=== PATIENT | male | born 1990 | race Caucasian/White ===

== ENCOUNTER 2016-12-08 16:48 | Emergency (ER) | payer OTHER ==
[~2016-12-08] VITALS: Ht 187.9 cm; Wt 108.9 kg
[~2016-12-08 16:48] MED LIST: ACETAMINOPHEN/O1 TAB PO; ADDERALL20 MG PO; ADVIL200 MG PO; AMOXICILLIN500 MG PO; ANAPROX DS550 MG PO; BACTROBAN OINT22 GM PO; CATAFLAM50 MG PO; CEPHALEXIN500 MG PO; CIPRO500 MG PO; CLARITIN10 MG PO; CLEOCIN HCL150 MG PO; CLEOCIN150 MG PO; CLINDAMYCIN HC300 MG PO; DAYPRO600 M1 PO; HYCODAN 1.5 MG480 ML PO; HYDROCODONE BIT1 T11 PO; IBU600 MG PO; LEVAQUIN500 M1 PO; MEDROL DOSEPAK4 MG PO; Motrin,Rufen800 MG PO; NORCO 5-325 TA1 EACH PO; PHENERGAN W/DM120 ML PO; PHENERGAN25 M1 PO; PHENERGAN25 MG RC; PREDNISONE20 MG PO; PROAIR HFA0.09 MG/AC INH; PROTONIX40 MG PO; SINGULAIR10 MG PO; TOBRADEX 0.1%-0.5 ML OPH; TRAMADOL HCL50 MG PO; TRAMADOL50 MG PO; TUSSIN DM 10 MG; VENTOLIN H0.09 MG/AC IH; VICODIN 5/500 505 MG PO; ZANTAC150 MG PO; ZOFRAN4 MG PO
[2016-12-08 17:45] LABS: BASO # 0.1 10*3/uL (0.0-0.1); BASO % 0.5 % (0.0-1.0); EOS # 0.1 10*3/uL (0.0-0.4); EOS % 1.2 % (1.0-4.0); HEMATOCRIT 40.2 % (42.0-52.0); HEMOGLOBIN 13.8 g/dl (14.0-18.0); LYMPH # 1.8 10*3/uL (1.3-4.4); LYMPH % 16.3 % (27.0-41.0); MEAN CELL VOLUME 85.7 fl (80.0-94.0); MEAN CORPUSCULAR HGB 29.4 pg (27.0-31.0); MEAN CORPUSCULAR HGB CONC 34.3 g/dl (33.0-37.0); MEAN PLATELET VOLUME 11.4 fl (9.6-12.3); MONO # 1.3 10*3/uL (0.1-1.0); MONO % 11.5 % (3.0-9.0); NEUT # 7.7 10*3/uL (2.3-7.9); NEUT % 70.2 % (47.0-73.0); PLATELET COUNT AUTOMATED 138 10*3/uL (130-400); RED BLOOD COUNT 4.69 10*6/uL (4.50-5.90); RED CELL DISTRI WIDTH 12.8 % (0-14.5); WHITE BLOOD COUNT 10.9 10*3/uL (4.8-10.8)
[2016-12-08 17:59] LABS: BILIRUBIN NEGATIVE (NEGATIVE); BLOOD TRACE-INTACT (NEGATIVE); CLARITY CLEAR (CLEAR); COLOR YELLOW (YELLOW); GLUCOSE NEGATIVE (NEGATIVE); KETONE TRACE (NEGATIVE); LEUKO ESTERASE NEGATIVE (NEGATIVE); NITRITE NEGATIVE (NEGATIVE)
[2016-12-08 18:05] LABS: ALBUMIN 3.6 gm/dl (3.1-4.5); ALKALINE PHOSPHATASE 61 U/L (45-117); BUN 10 mg/dl (7-24); CHLORIDE 108 mmol/L (98-107); CREATININE 1.03 mg/dL (0.70-1.30); POTASSIUM 3.8 mmol/L (3.5-5.1); SGOT/AST 20 IU/L (3-35); SGPT/ALT 31 U/L (12-78); SODIUM 140 mmol/L (136-145); TOTAL PROTEIN 6.9 gm/dL (6.4-8.2)
[2016-12-08 18:09] LABS: RBC 0-2 rbc/hpf (0-2); WBC 0-2 wbc/hpf (0-5)
[2016-12-08 18:14] LABS: URINE AMPHETAMINES < 1000 (1000ng/ml); URINE BARBITURATES < 200 (200ng/ml); URINE BENZODIAZEPINES < 200 (200ng/ml); URINE CANNABINOIDS (THC) < 50 (50ng/ml); URINE COCAINE < 300 (300ng/ml); URINE METHADONE < 300 (300ng/ml); URINE OPIATES < 300 (300ng/ml); URINE PHENCYCLIDINE < 25 (25ng/ml)
[2016-12-08 18:25] VITALS: BP 153/104
== END 2016-12-08 19:11 | disposition left against medical advice (07) ==
LOC: ED 16:48
PROVIDERS: Nurse Practitioner Family
DX: B34.9 Viral infection, unspecified (principal); M54.5 Low back pain; M54.2 Cervicalgia; F17.200 Nicotine dependence, unspecified, uncomplicated; Z87.442 Personal history of urinary calculi; Z88.0 Allergy status to penicillin; Z88.2 Allergy status to sulfonamides; Z88.1 Allergy status to other antibiotic agents

== ENCOUNTER 2017-08-19 21:18 | Emergency (ER) | payer OTHER ==
[~2017-08-19] VITALS: Ht 187.9 cm; Wt 99.8 kg
[2017-08-19 21:23] VITALS: BP 132/87
[2017-08-19 22:41] LABS: BASO # 0.1 10*3/uL (0.0-0.1); BASO % 0.7 % (0.0-1.0); EOS # 0.2 10*3/uL (0.0-0.4); EOS % 2.4 % (1.0-4.0); HEMATOCRIT 41.4 % (42.0-52.0); HEMOGLOBIN 14.2 g/dl (14.0-18.0); LYMPH % 36.1 % (27.0-41.0); MEAN CELL VOLUME 85.9 fl (80.0-94.0); MEAN CORPUSCULAR HGB 29.5 pg (27.0-31.0); MEAN CORPUSCULAR HGB CONC 34.3 g/dl (33.0-37.0); MEAN PLATELET VOLUME 12.1 fl (9.6-12.3); MONO # 0.9 10*3/uL (0.1-1.0); MONO % 10.3 % (3.0-9.0); NEUT # 4.2 10*3/uL (2.3-7.9); NEUT % 50.1 % (47.0-73.0); PLATELET COUNT AUTOMATED 169 10*3/uL (130-400); RED BLOOD COUNT 4.82 10*6/uL (4.50-5.90); RED CELL DISTRI WIDTH 12.8 % (0-14.5); WHITE BLOOD COUNT 8.3 10*3/uL (4.8-10.8)
[2017-08-19 22:59] LABS: ALKALINE PHOSPHATASE 57 U/L (45-117); BUN 23 mg/dl (7-24); CHLORIDE 108 mmol/L (98-107); CREATININE 0.88 mg/dL (0.70-1.30); POTASSIUM 3.9 mmol/L (3.5-5.1); SGOT/AST 19 IU/L (3-35); SGPT/ALT 31 U/L (12-78); SODIUM 142 mmol/L (136-145); TOTAL PROTEIN 6.9 gm/dL (6.4-8.2)
[2017-08-20] MEDS ORDERED: VIBRAMYCIN100 MG PO (00:15)
== END 2017-08-20 00:30 | disposition home or self-care (01) ==
LOC: ED 21:18
PROVIDERS: Physician Assistant
DX: R51 Headache (principal); R21 Rash and other nonspecific skin eruption; F17.200 Nicotine dependence, unspecified, uncomplicated; Z90.49 Acquired absence of other specified parts of digestive tract; Z98.890 Other specified postprocedural states; Z88.0 Allergy status to penicillin; Z88.2 Allergy status to sulfonamides; Z88.1 Allergy status to other antibiotic agents

== ENCOUNTER 2017-12-14 19:12 | Emergency (ER) | payer OTHER ==
[~2017-12-14] VITALS: Ht 187.9 cm; Wt 90.7 kg
[~2017-12-14 19:12] MED LIST changes: +VIBRAMYCIN100 MG PO
[2017-12-14 19:15] VITALS: BP 130/80
[2017-12-14 20:00] LABS: BASO # 0.1 10*3/uL (0.0-0.1); BASO % 0.8 % (0.0-1.0); EOS # 0.2 10*3/uL (0.0-0.4); EOS % 2.5 % (1.0-4.0); HEMATOCRIT 45.1 % (42.0-52.0); HEMOGLOBIN 15.7 g/dl (14.0-18.0); LYMPH # 2.8 10*3/uL (1.3-4.4); LYMPH % 35.4 % (27.0-41.0); MEAN CELL VOLUME 86.9 fl (80.0-94.0); MEAN CORPUSCULAR HGB 30.3 pg (27.0-31.0); MEAN CORPUSCULAR HGB CONC 34.8 g/dl (33.0-37.0); MEAN PLATELET VOLUME 11.9 fl (9.6-12.3); MONO # 0.9 10*3/uL (0.1-1.0); MONO % 11.1 % (3.0-9.0); NEUT # 3.9 10*3/uL (2.3-7.9); NEUT % 49.4 % (47.0-73.0); PLATELET COUNT AUTOMATED 181 10*3/uL (130-400); RED BLOOD COUNT 5.19 10*6/uL (4.50-5.90); RED CELL DISTRI WIDTH 12.7 % (0-14.5); WHITE BLOOD COUNT 7.9 10*3/uL (4.8-10.8)
[2017-12-14 20:13] LABS: ALBUMIN 3.8 gm/dl (3.1-4.5); ALKALINE PHOSPHATASE 58 U/L (45-117); BUN 14 mg/dl (7-24); CHLORIDE 108 mmol/L (98-107); CREATININE 0.88 mg/dL (0.70-1.30); POTASSIUM 3.7 mmol/L (3.5-5.1); SGOT/AST 22 IU/L (3-35); SGPT/ALT 49 U/L (12-78); SODIUM 140 mmol/L (136-145); TOTAL PROTEIN 7.2 gm/dL (6.4-8.2)
== END 2017-12-14 21:15 ==
LOC: ED 19:12
PROVIDERS: Student in an Organized Health Care Education/Training Program
DX: R51 Headache (principal); R50.9 Fever, unspecified; F17.200 Nicotine dependence, unspecified, uncomplicated; Z88.0 Allergy status to penicillin; Z88.1 Allergy status to other antibiotic agents; Z88.2 Allergy status to sulfonamides; Z88.8 Allergy status to other drugs, medicaments and biological substances

== ENCOUNTER → 2018-01-11 | Outpatient (CLI) | payer OTHER | END | disposition home or self-care (01) | LOC: CT 17:00 | DX: R51 Headache (principal) ==

== ENCOUNTER 2018-05-21 10:49 | Emergency (ER) | payer OTHER ==
[~2018-05-21] VITALS: Ht 187.9 cm; Wt 108.9 kg
[2018-05-21 10:50] VITALS: BP 136/93
[2018-05-21 11:31] LABS: BASO # 0.1 10*3/uL (0.0-0.1); BASO % 0.8 % (0.0-1.0); EOS # 0.1 10*3/uL (0.0-0.4); EOS % 2.2 % (1.0-4.0); HEMATOCRIT 45.6 % (42.0-52.0); HEMOGLOBIN 15.7 g/dl (14.0-18.0); LYMPH # 1.8 10*3/uL (1.3-4.4); LYMPH % 30.6 % (27.0-41.0); MEAN CELL VOLUME 88.4 fl (80.0-94.0); MEAN CORPUSCULAR HGB 30.4 pg (27.0-31.0); MEAN CORPUSCULAR HGB CONC 34.4 g/dl (33.0-37.0); MEAN PLATELET VOLUME 11.5 fl (9.6-12.3); MONO # 0.9 10*3/uL (0.1-1.0); MONO % 14.5 % (3.0-9.0); NEUT % 51.2 % (47.0-73.0); PLATELET COUNT AUTOMATED 164 10*3/uL (130-400); RED BLOOD COUNT 5.16 10*6/uL (4.50-5.90); RED CELL DISTRI WIDTH 12.8 % (0-14.5); WHITE BLOOD COUNT 5.9 10*3/uL (4.8-10.8)
[2018-05-21 11:45] LABS: ALBUMIN 3.6 gm/dl (3.1-4.5); BUN 11 mg/dl (7-24); CHLORIDE 110 mmol/L (98-107); CREATININE 1.01 mg/dL (0.70-1.30); POTASSIUM 4.1 mmol/L (3.5-5.1); SGOT/AST 29 IU/L (3-35); SGPT/ALT 60 U/L (12-78); SODIUM 142 mmol/L (136-145); TOTAL PROTEIN 7.3 gm/dL (6.4-8.2)
[2018-05-21 11:49] LABS: ALKALINE PHOSPHATASE 71 U/L (45-117)
[2018-05-21 11:50] LABS: BILIRUBIN NEGATIVE (NEGATIVE); BLOOD TRACE-INTACT (NEGATIVE); CLARITY SL CLOUDY (CLEAR); COLOR YELLOW (YELLOW); GLUCOSE NEGATIVE (NEGATIVE); KETONE NEGATIVE (NEGATIVE); LEUKO ESTERASE NEGATIVE (NEGATIVE); NITRITE NEGATIVE (NEGATIVE); PH 5.5 (5.0-9.0); SPECIFIC GRAVITY >= 1.030 (1.005-1.030); UROBILINOGEN 0.2 E.U./dl (0.2-1.0)
[2018-05-21 12:12] LABS: BACTERIA 1+; CALCIUM OXALATE CRYSTALS TRACE; MUCOUS 2+; WBC 0-2 wbc/hpf (0-5)
[2018-05-21] MEDS ORDERED: NAPROSYN500 MG PO (12:25)
[2018-05-21] MEDS ORDERED: CHLORZOXAZONE500 M2 PO (12:25)
[2018-05-21] MEDS ORDERED: ZOFRAN4 MG PO (12:25)
== END 2018-05-21 12:33 | disposition home or self-care (01) ==
LOC: ED 10:49
PROVIDERS: Nurse Practitioner Family
DX: R31.9 Hematuria, unspecified (principal); R03.0 Elevated blood-pressure reading, without diagnosis of hypertension; I48.91 Unspecified atrial fibrillation; Z88.0 Allergy status to penicillin; Z88.2 Allergy status to sulfonamides; Z88.8 Allergy status to other drugs, medicaments and biological substances; Z79.2 Long term (current) use of antibiotics; Z79.899 Other long term (current) drug therapy; Z87.442 Personal history of urinary calculi; Z90.49 Acquired absence of other specified parts of digestive tract

== ENCOUNTER 2018-06-05 12:54 | Emergency (ER) | payer OTHER ==
[~2018-06-05] VITALS: Ht 187.9 cm; Wt 104.3 kg
[~2018-06-05 12:54] MED LIST changes: +CHLORZOXAZONE500 M2 PO; +NAPROSYN500 MG PO
[2018-06-05 14:10] VITALS: BP 134/82
[2018-06-05 15:27] LABS: BASO # 0.1 10*3/uL (0.0-0.1); BASO % 0.7 % (0.0-1.0); EOS # 0.3 10*3/uL (0.0-0.4); HEMATOCRIT 43.4 % (42.0-52.0); HEMOGLOBIN 14.9 g/dl (14.0-18.0); LYMPH # 2.8 10*3/uL (1.3-4.4); MEAN CELL VOLUME 88.6 fl (80.0-94.0); MEAN CORPUSCULAR HGB 30.4 pg (27.0-31.0); MEAN CORPUSCULAR HGB CONC 34.3 g/dl (33.0-37.0); MEAN PLATELET VOLUME 11.8 fl (9.6-12.3); MONO # 0.7 10*3/uL (0.1-1.0); MONO % 8.9 % (3.0-9.0); NEUT # 4.4 10*3/uL (2.3-7.9); NEUT % 53.2 % (47.0-73.0); PLATELET COUNT AUTOMATED 178 10*3/uL (130-400); RED CELL DISTRI WIDTH 12.7 % (0-14.5); WHITE BLOOD COUNT 8.3 10*3/uL (4.8-10.8)
[2018-06-05 15:40] LABS: BILIRUBIN NEGATIVE (NEGATIVE); BLOOD NEGATIVE (NEGATIVE); CLARITY CLEAR (CLEAR); COLOR YELLOW (YELLOW); GLUCOSE NEGATIVE (NEGATIVE); KETONE NEGATIVE (NEGATIVE); LEUKO ESTERASE NEGATIVE (NEGATIVE); NITRITE NEGATIVE (NEGATIVE); PH 5.5 (5.0-9.0); SPECIFIC GRAVITY >= 1.030 (1.005-1.030); UROBILINOGEN 0.2 E.U./dl (0.2-1.0)
[2018-06-05 15:49] LABS: BACTERIA TRACE; CALCIUM OXALATE CRYSTALS TRACE; EPITHELIAL CELLS 0-2; RBC 0-2 rbc/hpf (0-2)
[2018-06-05 15:54] LABS: ALBUMIN 3.4 gm/dl (3.1-4.5); ALKALINE PHOSPHATASE 68 U/L (45-117); BUN 13 mg/dl (7-24); CHLORIDE 110 mmol/L (98-107); CREATININE 0.92 mg/dL (0.70-1.30); POTASSIUM 3.8 mmol/L (3.5-5.1); SGOT/AST 15 IU/L (3-35); SGPT/ALT 26 U/L (12-78); SODIUM 141 mmol/L (136-145); TOTAL PROTEIN 6.8 gm/dL (6.4-8.2)
[2018-06-05] MEDS ORDERED: ROBAXIN500 M1 PO (17:07)
[2018-06-05] MEDS ORDERED: PREDNISONE20 M1 PO (17:07)
== END 2018-06-05 17:15 | disposition home or self-care (01) ==
LOC: ED 12:54
PROVIDERS: Physician Assistant
DX: M54.5 Low back pain (principal); M25.551 Pain in right hip; M25.552 Pain in left hip; M62.838 Other muscle spasm; F17.200 Nicotine dependence, unspecified, uncomplicated; Z88.0 Allergy status to penicillin; Z88.2 Allergy status to sulfonamides; Z88.1 Allergy status to other antibiotic agents; Z88.8 Allergy status to other drugs, medicaments and biological substances; X58.XXXA Exposure to other specified factors, initial encounter; Y93.89 Activity, other specified; Y92.89 Other specified places as the place of occurrence of the external cause; Y99.8 Other external cause status

== ENCOUNTER 2018-10-25 21:19 | Inpatient (IN) | payer OTHER ==
[~2018-10-25] VITALS: Ht 187.9 cm; Wt 108.5 kg
--- NOTE | ~2018-10-25 | EKG ---
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
--- NOTE | ~2018-10-25 | EKG ---
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
--- NOTE | ~2018-10-25 | ST ---
[place], [place] EXERCISE STRESS TEST REPORT NAME: [facility]END[id number] UNIT #: [id number] ROOM: 404 DOCTOR: MAYO CAMARGO,ALONZO BIRTHDATE: [birth year] DOS: 10/26/2018 EXERCISE TREADMILL STRESS TEST REASON FOR TEST: Chest pain. PHYSICAL EXAMINATION: NECK: Supple. LUNGS: Clear anteriorly. HEART: Regular rhythm. PROTOCOL: Accelerated Arnoldo protocol. Total stress time 7 minutes and 5 seconds. Maximum heart rate 156, which is 82% target heart rate. Peak blood pressure 158/60. Total mets 10.8 mets. SYMPTOMS: The patient was mild short of breath. No chest pain. REASON FOR TERMINATION: Shortness of breath and back pain. EKG: Resting EKG shows sinus rhythm. Stress EKG showed no ischemia, no arrhythmias. CONCLUSION: Submaximal stress test with 82% target heart rate, no ischemia, no arrhythmias. The patient achieved 82% target heart rate, 10.8 mets, low risk Francis treadmill score. POST-STRESS COMPLICATIONS: None. ALONZO HUBER MD CM:STRESS:EXERCISE STRESS TEST REPORT [id number] ALONZO HUBER MD
--- NOTE | ~2018-10-25 | EKG ---
[place], [place] ELECTROCARDIOGRAM REPORT NAME: COREEN MENDES UNIT #: [id number] ROOM: 404 DOCTOR: KACIE DRAFT REPORT BIRTHDATE: [birth year] 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
--- NOTE | ~2018-10-25 | EKG ---
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
--- NOTE | ~2018-10-25 | CON ---
[place], [place] REPORT OF CONSULTATION NAME: COREEN MENDES [facility] #: [id number] UNIT #: [id number] ROOM: 404 DOCTOR: ALONZO HUBER MD BIRTHDATE: [birth year] DOS: 10/26/2018 REASON FOR CONSULT: Chest pain. HISTORY OF PRESENT ILLNESS: The patient is a 28-year-old gentleman with history of WPW syndrome, status post ablation, headaches, was presented to the Emergency Room for chest pain. His pain started in the morning at rest, midsternal pain with radiation to his left breast area at the left shoulder and neck area and also towards the left ear area. This intermittent pain as stabbing type lasted for less than a minute. He had a few of these episodes intermittently waxing and waning. He takes propranolol for his headaches, but he did take extra propranolol, which did not help his symptoms. He presented to the Emergency Room and was admitted to the hospital and Cardiology consulted for his chest pain and history of WPW syndrome. He has occasional dizziness and some nausea and tingling, numbness in his hands, but no syncope, no palpitations, no fever and chills. No shortness of breath. No cough or hemoptysis. No neurologic symptoms. No genitourinary symptoms. No musculoskeletal symptoms. REVIEW OF SYSTEMS: Review of 10 systems negative except as mentioned above. PAST MEDICAL HISTORY: 1. WPW syndrome, status post ablation in 2010. 2. Migraine headaches. 3. Chronic midline back pain. PAST SURGICAL HISTORY: History of cardiac ablation in 2010, history of appendicectomy 2009, history of carpal tunnel surgery of the right hand. SOCIAL HISTORY: The patient currently smokes one another pack a day, does not use illicit drugs or abuses any alcohol. FAMILY HISTORY: Father had hypertension, alive. Mother has asthma, alive. ALLERGIES: Reviewed. HOME MEDICATIONS: Reviewed. PHYSICAL EXAMINATION: VITAL SIGNS: Reviewed and stable. GENERAL: Alert, comfortable, in no acute distress. HEENT: Pupils are round and equal. No jaundice. Tongue was moist and pharynx clear. NECK: Supple, no distended neck veins, no carotid bruit. CHEST: Symmetrical, nontender. LUNGS: Clear to auscultation bilaterally. HEART: Regular rhythm, no S3, no palpable thrills. ABDOMEN: Benign, nontender. Bowel sounds normal. EXTREMITIES: Showed no edema. Distal pulses palpable. SKIN: Warm and dry. No cyanosis, no clubbing. RECTAL: Deferred. [place], [place] REPORT OF CONSULTATION NAME: [facility]END[id number] UNIT #: [id number] ROOM: [facility] DOCTOR: ALONZO HUBER MD BIRTHDATE: [birth year] GENITOURINARY: Deferred. NEUROLOGIC: The patient is alert with no focal neurologic deficit. PSYCHIATRIC: The patient is alert with good mood and affect. REVIEW OF THE DIAGNOSTIC TESTS: EKG unremarkable with no acute ST-T changes. His labs reviewed. Cardiac enzymes are negative. IMPRESSION: 1. Chest pain, atypical, myocardial infarction ruled out. 2. Tobacco use. 3. History of Lhazw-Ioqwcexgo-Dqijp syndrome, status post ablation in 2010. 4. History of migraine headaches. 5. Non-morbid obesity. RECOMMENDATIONS: The patient was scheduled for treadmill test due to his atypical chest pain and history of WPW syndrome. Risk factor modification for diet, exercise, weight loss as well as to quit smoking discussed. The treadmill is unremarkable. He can be discharged from the cardiac standpoint. ALONZO HUBER MD CM:CONSTR:REPORT OF CONSULTATION 1404 10/27/18 0016 interface
[~2018-10-25 21:19] MED LIST changes: +PREDNISONE20 M1 PO; +ROBAXIN500 M1 PO
[2018-10-25 21:26] VITALS: BP 146/88
[2018-10-25 21:37] LABS: BASO # 0.1 10*3/uL (0.0-0.1); BASO % 0.9 % (0.0-1.0); EOS # 0.2 10*3/uL (0.0-0.4); EOS % 2.5 % (1.0-4.0); HEMATOCRIT 48.2 % (42.0-52.0); HEMOGLOBIN 16.5 g/dl (14.0-18.0); LYMPH # 3.1 10*3/uL (1.3-4.4); LYMPH % 36.1 % (27.0-41.0); MEAN CELL VOLUME 89.1 fl (80.0-94.0); MEAN CORPUSCULAR HGB 30.5 pg (27.0-31.0); MEAN CORPUSCULAR HGB CONC 34.2 g/dl (33.0-37.0); MEAN PLATELET VOLUME 12.1 fl (9.6-12.3); MONO # 0.8 10*3/uL (0.1-1.0); MONO % 9.2 % (3.0-9.0); NEUT # 4.4 10*3/uL (2.3-7.9); NEUT % 50.3 % (47.0-73.0); PLATELET COUNT AUTOMATED 198 10*3/uL (130-400); RED BLOOD COUNT 5.41 10*6/uL (4.50-5.90); WHITE BLOOD COUNT 8.7 10*3/uL (4.8-10.8)
[2018-10-25 21:54] LABS: ALBUMIN 3.8 gm/dl (3.1-4.5); ALKALINE PHOSPHATASE 71 U/L (45-117); BUN 16 mg/dl (7-24); CHLORIDE 109 mmol/L (98-107); CREATININE 0.94 mg/dL (0.70-1.30); POTASSIUM 3.8 mmol/L (3.5-5.1); SGOT/AST 23 IU/L (3-35); SGPT/ALT 42 U/L (12-78); SODIUM 141 mmol/L (136-145); TOTAL PROTEIN 7.5 gm/dL (6.4-8.2)
[2018-10-25 21:55] LABS: TROPONIN I < 0.015 ng/ml (<0.045)
[2018-10-25 22:02] LABS: INTERNATIONAL NORM RATIO 0.9 (2.0-3.5)
[2018-10-25 23:30] VITALS: BP 137/84
--- NOTE | 2018-10-25 23:30 | NUR ---
NO RELIEF YET DEPSITE PAIN MEDICATION AND BENADRYL. UPDATED ON ROOM ASSIGNMENT AND AWAITING NURSE FROM FLOOR.
[2018-10-25 23:35] VITALS: BP 136/85
--- NOTE | 2018-10-25 23:35 | NUR ---
A 28, admitted to , under the services of NIC Zhang DO with a diagnosis of CHEST PAIN. Chief complaint is CHEST PAIN. Patient arrived via wheel chair from ER. Monitor applied. Initial assessment completed. Vital signs taken and recorded. NIC ZHANG DO notified of admission to the unit. Orders received. See assessment for past medical history, medications and allergies. Patient and/or family oriented to unit. [facility] visitation policy reviewed. Clothing/patient valuable form completed. BARBARA COX
[2018-10-26] MEDS ORDERED: PROPRANOLOL HCL20 MG PO (00:04)
[2018-10-26] MEDS ORDERED: NEURONTIN300 MG PO (00:05)
--- NOTE | 2018-10-26 00:05 | NUR ---
MED REC UP TO DATE PER PT RECALL AT THIS TIME.
[2018-10-26] MEDS ORDERED: ADVIL200 MG PO (00:06)
--- NOTE | 2018-10-26 00:40 | NUR ---
'S ANSWERING SERVICE CALLED REGARDING CONSULT. INFORMATION LEFT WITH TRANSPORTATION EQUIPMENT PAINTER. WILL MONITOR.
--- NOTE | 2018-10-26 01:00 | NUR ---
NICOTINE PATCH APPLIED TO L UPPER ARM. CRACKERS PROVIDED PER REQUEST. SENT AIDE TO MEET SECURITY IN KITCHEN FOR BOXED LUNCHES, PT C/O BEING HUNGRY. WILL MONITOR. IVF BOLUS INFUSING.
--- NOTE | 2018-10-26 01:12 | NUR ---
IV FLUID BOLUS COMPLETE AT THIS TIME. IV SITE NOW HEP-LOCKED IN RAC.
--- NOTE | 2018-10-26 01:20 | NUR ---
MEGAN HICKS (LIVE-IN [facility]): [phone] ALDA MENDES (MOTHER): [phone]
--- NOTE | 2018-10-26 03:09 | NUR ---
PATIENT ASLEEP IN BED. RESPIRATIONS EASY. NO S/S OF DISTRESS NOTED. WILL MONITOR. CALL LIGHT LEFT IN REACH.
[2018-10-26 03:18] LABS: BASO # 0.1 10*3/uL (0.0-0.1); BASO % 0.9 % (0.0-1.0); EOS # 0.2 10*3/uL (0.0-0.4); EOS % 3.3 % (1.0-4.0); HEMATOCRIT 44.2 % (42.0-52.0); HEMOGLOBIN 14.9 g/dl (14.0-18.0); LYMPH # 2.9 10*3/uL (1.3-4.4); LYMPH % 41.4 % (27.0-41.0); MEAN CELL VOLUME 89.1 fl (80.0-94.0); MEAN CORPUSCULAR HGB CONC 33.7 g/dl (33.0-37.0); MEAN PLATELET VOLUME 11.5 fl (9.6-12.3); MONO # 0.6 10*3/uL (0.1-1.0); MONO % 9.2 % (3.0-9.0); NEUT % 43.9 % (47.0-73.0); PLATELET COUNT AUTOMATED 160 10*3/uL (130-400); RED BLOOD COUNT 4.96 10*6/uL (4.50-5.90); RED CELL DISTRI WIDTH 12.8 % (0-14.5); WHITE BLOOD COUNT 6.9 10*3/uL (4.8-10.8)
[2018-10-26 03:29] LABS: BUN 18 mg/dl (7-24); CHLORIDE 111 mmol/L (98-107); CREATININE 0.93 mg/dL (0.70-1.30); POTASSIUM 3.6 mmol/L (3.5-5.1); SODIUM 142 mmol/L (136-145)
[2018-10-26 03:30] VITALS: BP 125/73
--- NOTE | 2018-10-26 03:30 | NUR ---
PATIENT C/O SOME L SIDED NECK "TINGLING." PT DESCRIBES PAIN TINGLING, ALMOST FEELS NUMB. NOTIFIED OF THIS. STATES HE WILL NOTIFY & REVIEW CHART.
--- NOTE | 2018-10-26 03:35 | NUR ---
PT EDUCATED ABOUT USE OF MERLE HOSE/IMPORTANCE OF WEARING. PT DECLINES NEED FOR TEDs.
--- NOTE | 2018-10-26 05:38 | NUR ---
PATIENT MEDICATED WITH PO TYLENOL PER PRN ORDER FOR C/O HEADACHE. WILL MONITOR EFFECTIVENESS. CALL LIGHT LEFT WITHIN REACH.
--- NOTE | 2018-10-26 06:33 | NUR ---
AWARE THAT PT'S HOME MED REC UP TO DATE PER PT RECALL.
[2018-10-26 08:00] VITALS: BP 121/88
--- NOTE | 2018-10-26 09:00 | NUR ---
Stunt Double in to talk to patient. Patient states lives at home with family. There are few steps in the home. Physician: jacob Pharmacy: [facility] Home health services: none Patient's level of ADLs: INDEPENDENT Patient has working utilities: all working DME: none Follow-up physician's appointment after d/c: will be made by hospitalist nurse director upon discharge Does patient want to access PORTAL?: no Discharge plan discussed with patient, he is independent in adls and ambulation, works, drives, he will be returning home when able and denies any home needs. SHARONDA MARIE
--- NOTE | 2018-10-26 10:30 | NUR ---
INFORMED SIGNED CONSENT OBTAINED FOR STANDARD ONLY GXT. RESTING EKG NSR WITH PAC HR 61 BP 122/80 IN SUPINE POSITION, T WAVE INVERSION IN AVR AND V1. STANDING HR 70 BP 128/84. PT COMPLETED 7:00 OF A 2 MIN EDWIGE PROTOCOL WITH PT COMPLETING ONE MINUTE OF STAGE IV AT 4.2 MPH AND A 16% GRADE. PT REACHED APEAK HR OF 156 WHICH REPRESENTS 82% OF PREDICTED MAXIMUM AND A PEAK BP OF 158/66. NO ARRYTHMIAS OR ST CHANGES NOTED.TEST TERMINATED DUE TO FATIGUE. LAST RECOVERY HR OF 107 BP 122/70. PT IN STABLE CONDITION, AWAITING TRANSPORT TO ROOM.
[2018-10-26 11:52] VITALS: BP 129/89
--- NOTE | 2018-10-26 15:40 | NUR ---
PT STATES NORCO NOT EFFECTIVE FOR HEADACHE. HE ALSO STATES HIS LEFT SIDE OF HIS NECK AND HANDS ARE NUMB AND FEEL "WEIRD" DR FRANK NOTIFIED.
[2018-10-26 16:00] VITALS: BP 144/93
--- NOTE | 2018-10-26 18:22 | NUR ---
PT REQUESTED AND WAS MEDICATED WITH MORPHINE IV FOR C/O HEADACHE AND SIDE OF NECK PAIN. CALL LIGHT IN REACH. WILL MONITOR
--- NOTE | 2018-10-26 19:50 | NUR ---
PT MEDICATED WITH PO MOTRIN FOR C/O HEADACHE WITHOUT RELIEF FROM MORPHINE. WILL NOTIFY OF HEADACHE & PT'S REQUEST FOR DIFFERENT PAIN MEDICATION.
[2018-10-26 20:00] VITALS: BP 148/91
--- NOTE | 2018-10-26 21:05 | NUR ---
NOTIFIED THAT PATIENT IS STILL C/O HEADACHE FOLLOWING PO MOTRIN. NEW ORDERS TO FOLLOW.
--- NOTE | 2018-10-26 21:34 | NUR ---
ONE TIME DOSE OF TYLENOL GIVEN PER ORDER FOR PT C/O HEADACHE. WILL MONITOR EFFECTIVENESS. CALL LIGHT IN REACH.
[2018-10-26 23:43] VITALS: BP 146/94
--- NOTE | 2018-10-26 23:50 | NUR ---
PT STILL C/O HEADACHE WITHOUT RELIEF FROM TYLENOL. PO NORCO GIVEN AT THIS TIME. ALSO ADMINISTERED PRN RESTORIL PER REQUEST FOR C/O INSOMNIA. PT C/O INTERMITTENT CHEST "ACHE" THAT HE RATES "MILD, 2 OR 3 OUT OF 10." STAT EKG ORDERED. NO CHANGES NOTED. WILL NOTIFY DR OF CONTINUED CP.
[2018-10-27] VITALS: BP 130/88
--- NOTE | 2018-10-27 00:17 | NUR ---
NOTIFIED OF PATIENT'S C/O CP/HEADACHE. DISCUSSED EKG ORDERED AND MEDICATIONS GIVEN. INSTRUCTED TO ORDER STAT TROPONIN X1 NOW.
--- NOTE | 2018-10-27 03:06 | NUR ---
NOTIFIED OF PATIENT'S CONTINUED C/O HEADACHE. WILL CONTINUE TO CYCLE THROUGH CURRENT PRN MEDICATIONS NEEDED BY PT.
--- NOTE | 2018-10-27 03:14 | NUR ---
RN WENT INTO PT'S ROOM TO OFFER PRN MORPHINE. PATIENT ASLEEP AT THIS TIME. WILL REASSESS PAIN LEVEL WHEN PATIENT AWAKENS.
--- NOTE | 2018-10-27 03:40 | NUR ---
PT ASLEEP IN BED. RESPIRATIONS EASY. NO S/S OF DISTRESS NOTED. WILL MONITOR. CALL LIGHT IN REACH.
--- NOTE | 2018-10-27 04:13 | NUR ---
PT REMAINS ASLEEP IN BED. WILL MONITOR. CALL LIGHT IN REACH.
--- NOTE | 2018-10-27 04:50 | NUR ---
PATIENT PLACED BACK ON WAREHOUSE FREIGHT HANDLER, A LEAD HAD COME OFF. PO NORCO ALSO ADMINISTERED AT THIS TIME PER PT REQUEST FOR C/O HEADACHE. WILL MONITOR. CALL LIGHT LEFT IN REACH.
--- NOTE | 2018-10-27 06:15 | NUR ---
PT DENIES NEED FOR ANY FURTHER PAIN MEDICATION. EARLIER NORCO EFFECTIVE. WILL MONITOR.
[2018-10-27 08:00] VITALS: BP 127/89
[2018-10-27 08:08] LABS: BUN 17 mg/dl (7-24); CHLORIDE 110 mmol/L (98-107); CREATININE 0.78 mg/dL (0.70-1.30); POTASSIUM 3.8 mmol/L (3.5-5.1); SODIUM 141 mmol/L (136-145)
--- NOTE | 2018-10-27 09:00 | NUR ---
case management visits with patient, he will be returning home when able and denies any home needs
[2018-10-27 12:00] VITALS: BP 133/83
--- NOTE | 2018-10-27 14:45 | NUR ---
PT NOTIFIED THAT DISCHARGE WAS ORDERED. PT REQUESTED TO SPEAK WITH THE DR R/T NECK PAIN AND HEADACHE THAT PERSISTS, DR FRANK NOTIFIED.
[2018-10-27 16:00] VITALS: BP 143/92
--- NOTE | 2018-10-27 16:55 | NUR ---
Discharge instructions reviewed with patient/family. Patient receptive and verbalizes understanding. Follow-up care arranged. Written instructions given to patient/family. Pt escorted to car via wheelchair and staff. TANYA SALINAS
== END 2018-10-27 16:56 | disposition home or self-care (01) | DRG 313 ==
LOC: ED 21:19 → 4E 22:40 → EDHOLD 22:40 → 4E 23:00
PROVIDERS: Family Medicine; Student in an Organized Health Care Education/Training Program; ADMIT Family Medicine
DX: R07.2 Precordial pain (principal); R73.9 Hyperglycemia, unspecified; E87.8 Other disorders of electrolyte and fluid balance, not elsewhere classified; M54.9 Dorsalgia, unspecified; G89.29 Other chronic pain; E66.8 Other obesity; G43.909 Migraine, unspecified, not intractable, without status migrainosus; F17.210 Nicotine dependence, cigarettes, uncomplicated; Z71.6 Tobacco abuse counseling; Z88.0 Allergy status to penicillin; Z88.2 Allergy status to sulfonamides; Z88.8 Allergy status to other drugs, medicaments and biological substances; Z88.1 Allergy status to other antibiotic agents; Z90.49 Acquired absence of other specified parts of digestive tract; Z82.49 Family history of ischemic heart disease and other diseases of the circulatory system; Z82.5 Family history of asthma and other chronic lower respiratory diseases; Z68.30 Body mass index [BMI] 30.0-30.9, adult

== ENCOUNTER 2019-03-09 08:45 | Inpatient (IN) | payer OTHER ==
[~2019-03-09] VITALS: Ht 188 cm; Wt 109.0 kg
--- NOTE | ~2019-03-09 | EKG ---
[place], [place] ELECTROCARDIOGRAM REPORT NAME: COREEN MENDES UNIT #: [id number] ROOM: 519 DOCTOR: KACIE DRAFT REPORT BIRTHDATE: [birth year] [facility] Test Date: 2019-03-10 Test Time: 00:54:21 Pat Name: COREEN MENDES Department: Room: [facility] 1 Gender: M Sink Maker: Richa Pinto : 1990 Requested By: GORDY DURAN Order Number: [id number] Reading MD: Adrián Harrison MD Measurements Intervals [place] Rate: 55 P: 22 [place]: 147 QRS: 21 QRSD: 99 T: 11 QT: 433 QTc: 415 Interpretive Statements Sinus rhythm ST elev, consider early repol, pericarditis, or injury Compared to ECG 10/26/2018 23:29:[address] changes appear similar Electronically Signed On 03-10-2019 6:16:15 PST by Adrián Harrison MD CM:EKGRPT:ELECTROCARDIOGRAM REPORT [id number] 0616 GORDY HESTER DRAFT REPORT GORDY DURAN
--- NOTE | ~2019-03-09 | CON ---
[place], [place] REPORT OF CONSULTATION [id number] UNIT #: [id number] ROOM: 519 [facility] BIR[facility]: [birth year] DOS: GASTROENDOSCOPIC REPORT A 28-year-old patient who has presented with nausea, vomiting to the hospital, has been admitted through the Emergency Room and workup has been undertaken. His lactic acid has been 1.6: GFR greater than 60, AST and ALT of 38 and 80. His lipase is 98. CBC differential was reassessed. CT scan of the abdomen and pelvis, no acute process either increased density of hepatic parenchyma 4 mm right lower lobe nodule. Gallbladder sonogram was reviewed, diffuse hepatic steatosis, otherwise no cholelithiasis is noticed. Drug screening was negative and chest x-ray was no acute process. CBC differential was reassessed. Comprehensive metabolic panel: GFR greater than 60. Liver function tests negative. Labs and records reviewed. PAST MEDICAL HISTORY: Associated with abdominal pain for approximately 2 weeks, relatively diffuse. No hematemesis or hematochezia, past history of nonspecific diarrhea, past medical history of migraine cephalalgia, and near syncope. PAST SURGICAL HISTORY: Appendectomy. SOCIAL HISTORY: Nonsmoker, no alcohol consumer. FAMILY HISTORY: Noncontributory. ALLERGIES: SULFA, PENICILLIN, Z-JOSÉ and REGLAN. HOME MEDICATIONS: At home reviewed. REVIEW OF SYSTEMS: HEENT: Denies double vision, blurred vision. RESPIRATORY: Denies shortness of breath. CARDIOVASCULAR: Denies chest pain. DIGESTIVE SYSTEM: Nausea, vomiting, abdominal pain. PHYSICAL EXAMINATION: VITAL SIGNS: Stable. HEENT: Head normocephalic, nontraumatic. Mouth and buccal mucosa benign. NECK: Supple. No thyromegaly. CHEST: Symmetric anatomy, equal expansion. No wheeze, no rhonchi. HEART: Normal sinus rhythm, no gallop, no murmur. ABDOMEN: Obese, large, soft. No hepato-organomegaly. Bowel sounds present. No pulsatile mass. EXTREMITIES: No cyanosis, no pedal edema. NEUROLOGIC: Alert, oriented to time, place, person. LABORATORY DATA: Reviewed. Records reviewed. IMPRESSION: Nausea, vomiting upon my detailed questioning, I have found out that the patient drinks large volume of drink called monster drink daily at [place], [place] REPORT OF CONSULTATION NAME: COREEN MENDES UNIT #: [id number] ROOM: 519 DOCTOR: JOSHUA CAMARGO,KAIN BIRTHDATE: [birth year] least 4 cans and the chemical component of the above with caffeinated quantity in it could be the cause. He is not an alcohol lover in general and he used to consume nicotine products not to avid volume. PLAN AND DISCUSSION: We are going to proceed with endoscopy of upper tract. KAIN LEWIS MD CM:CONSTR:REPORT OF CONSULTATION 1607 03/12/19 0535 interface
--- NOTE | ~2019-03-09 | O ---
[place], [place] OPERATIVE NOTE NAME: COREEN MENDES UNIT #: [id number] ROOM: 519 DOCTOR: JOSHUA CAMARGO,KAIN BIRTHDATE: [birth year] DOS: GASTROENDOSCOPIC REPORT Consultation has been dictated. Today's procedure part of investigation is panendoscopy plus biopsy. PREMEDICATION: Propofol. SCOPE: Olympus forward-viewing gastroscope Q10 video. REPORT: After putting the patient in left lateral position and application of lubricant to the scope, the scope was introduced. Thereafter, under direct visualization, I advanced through the length of esophagus without difficulty. Gastric pouch was entered. Gastritis was seen. Antral biopsy obtained for H. pylori. Duodenal bulb, second and third part within normal limits. The patient extubated, tolerated the procedure well. IMPRESSION: Gastritis, status post biopsy ruling out H. pylori. PLAN AND DISCUSSION: We are going to give him a regular diet today, low fat and he is going to stay away from caffeinated beverages at the present time, he is going to be discharged on omeprazole 20 mg 1 daily and he is going to follow up with us as outpatient. I have advised him to abstain from caffeinated beverages, carbonated soda beverages, specifically to abstain from intake of a drink called the Monster and no chewing products of nicotine entity. On the other hand, the patient has fatty metamorphosis of the liver. He is to avoid fatty food, particularly fried and on the other hand, vitamin E 400 international units daily and follow up as outpatient. His CT scan of the abdomen and pelvis has been reviewed. His drug screening is negative. His gallbladder sonogram shows no stone and all records have been reviewed. KAIN LEWIS MD CM:OPRECORD:OPERATIVE NOTE 1607 0538 KAIN LEWIS MD 03/12/19 0539 interface
[~2019-03-09 08:45] MED LIST changes: +NEURONTIN300 MG PO; +PROPRANOLOL HCL20 MG PO
[2019-03-09 08:47] VITALS: BP 130/87
[2019-03-09 09:21] LABS: HEMATOCRIT 44.7 % (42.0-52.0); HEMOGLOBIN 15.3 g/dl (14.0-18.0); MEAN CELL VOLUME 87.6 fl (80.0-94.0); MEAN CORPUSCULAR HGB CONC 34.2 g/dl (33.0-37.0); MEAN PLATELET VOLUME 11.4 fl (9.6-12.3); PLATELET COUNT AUTOMATED 210 10*3/uL (130-400); RED CELL DISTRI WIDTH 13.1 % (0-14.5); WHITE BLOOD COUNT 8.3 10*3/uL (4.8-10.8)
[2019-03-09 09:27] LABS: BILIRUBIN NEGATIVE (NEGATIVE); BLOOD NEGATIVE (NEGATIVE); CLARITY SL CLOUDY (CLEAR); COLOR YELLOW (YELLOW); GLUCOSE NEGATIVE (NEGATIVE); KETONE NEGATIVE (NEGATIVE); LEUKO ESTERASE NEGATIVE (NEGATIVE); NITRITE NEGATIVE (NEGATIVE); PH 5.5 (5.0-9.0); SPECIFIC GRAVITY >= 1.030 (1.005-1.030); UROBILINOGEN 0.2 E.U./dl (0.2-1.0)
[2019-03-09 09:36] LABS: ALBUMIN 3.5 gm/dl (3.1-4.5); ALKALINE PHOSPHATASE 65 U/L (45-117); BUN 14 mg/dl (7-24); CHLORIDE 113 mmol/L (98-107); CREATININE 0.99 mg/dL (0.70-1.30); LIPASE 98 U/L (73-393); POTASSIUM 4.2 mmol/L (3.5-5.1); SGOT/AST 38 IU/L (3-35); SGPT/ALT 80 U/L (12-78); SODIUM 142 mmol/L (136-145); TOTAL PROTEIN 7.1 gm/dL (6.4-8.2)
[2019-03-09 09:37] LABS: CALCIUM OXALATE CRYSTALS TRACE; EPITHELIAL CELLS 0-2; MUCOUS 2+
[2019-03-09 09:47] LABS: ATYPICAL LYMPHS 1 % (0-0); PLATELET SUFFICIENCY NORMAL (NORMAL); TOTAL CELLS COUNTED 100 #CELLS
[2019-03-09 10:57] VITALS: BP 126/84
[2019-03-09 11:12] LABS: IRON 95 ug/dL (65-175); TOTAL IRON BINDING CAPACITY 373 ug/dl (250-450)
--- NOTE | 2019-03-09 12:10 | NUR ---
ALL TESTING HAS RETURNED. PT AWARE. NAUSEA RESOLVED. PAIN UNCHANGED SINCE ARRIVAL.
[2019-03-09] MEDS ORDERED: LOMOTIL 2.5-0.1 EACH PO (12:32)
[2019-03-09] MEDS ORDERED: ZOFRAN4 MG PO (12:32)
--- NOTE | 2019-03-09 12:41 | NUR ---
AT TIME OF DISCHARGE, PROVIDER ORDERS A PO FLUID CHALLENGE PRIOR TO DISCHARGE. FLUIDS PROVIDED. WILL MONITOR FOR RETURN OF NAUSEA.
--- NOTE | 2019-03-09 13:08 | NUR ---
PT HAS FAILED FLUID CHALLENGE WITH VIOLENT WRETCHING. ADMISSION PENDING. NEW ORDERS PENDING.
[2019-03-09 14:18] VITALS: BP 138/86
[2019-03-09 16:54] LABS: URINE AMPHETAMINES < 1000 (1000ng/ml); URINE BARBITURATES < 200 (200ng/ml); URINE BENZODIAZEPINES < 200 (200ng/ml); URINE CANNABINOIDS (THC) < 50 (50ng/ml); URINE COCAINE < 300 (300ng/ml); URINE METHADONE < 300 (300ng/ml); URINE OPIATES < 300 (300ng/ml)
[2019-03-09 16:58] LABS: URINE PHENCYCLIDINE < 25 (25ng/ml)
[2019-03-09 20:00] VITALS: BP 128/77
--- NOTE | 2019-03-09 20:40 | NUR ---
SPOKE WITH DR DURAN REGARDING PT REQUEST FOR PAIN MEDICATION. STATES TORADOL WASN'T EFFECTIVE. AWAITING NEW ORDERS.
--- NOTE | 2019-03-09 21:30 | NUR ---
PT HAD CHICKEN BROTH AND A POPSICLE. WAS ABLE TO HOLD IT DOWN. HAD A FEW SPELLS OF DRY HEAVES BUT NO EMESIS.
--- NOTE | 2019-03-09 21:46 | NUR ---
PRN NORCO AND ZOFRAN ADMINISTERED FOR PT C/O NAUSEA/DRY HEAVES AND MID ABDOMINAL PAIN RATED A 7/10 ON THE PAIN SCALE. WILL CONTINUE TO MONITOR AND REASSESS. NO OTHER COMPLAINTS AT THIS TIME.
--- NOTE | 2019-03-09 23:00 | NUR ---
PT ASLEEP AT THIS TIME. WILL CONTINUE TO MONITOR.
--- NOTE | 2019-03-09 23:23 | NUR ---
DR DURAN NOTIFIED OF PT C/O CHEST TIGHTNESS. VITAL SIGNS STABLE T: 97.4, P:63, R:18, BP: 127/69, PO: 98%. WILL MONITOR. PT STATES THAT HE ALSO HAS "A LUMP IN HIS THROAT", BUT IS DENYING DIFFICULTY BREATHING.
[2019-03-10] VITALS: BP 127/69
[2019-03-10 00:26] LABS: TROPONIN I < 0.015 ng/ml (<0.045)
[2019-03-10 06:42] LABS: BASO # 0.1 10*3/uL (0.0-0.1); BASO % 0.9 % (0.0-1.0); EOS # 0.2 10*3/uL (0.0-0.4); EOS % 2.4 % (1.0-4.0); HEMATOCRIT 41.9 % (42.0-52.0); LYMPH # 2.5 10*3/uL (1.3-4.4); LYMPH % 31.7 % (27.0-41.0); MEAN CELL VOLUME 87.1 fl (80.0-94.0); MEAN CORPUSCULAR HGB 29.1 pg (27.0-31.0); MEAN CORPUSCULAR HGB CONC 33.4 g/dl (33.0-37.0); MEAN PLATELET VOLUME 11.1 fl (9.6-12.3); MONO # 0.7 10*3/uL (0.1-1.0); MONO % 8.3 % (3.0-9.0); NEUT # 4.3 10*3/uL (2.3-7.9); NEUT % 54.2 % (47.0-73.0); PLATELET COUNT AUTOMATED 190 10*3/uL (130-400); RED BLOOD COUNT 4.81 10*6/uL (4.50-5.90); RED CELL DISTRI WIDTH 12.7 % (0-14.5); WHITE BLOOD COUNT 7.9 10*3/uL (4.8-10.8)
--- NOTE | 2019-03-10 06:55 | NUR ---
NORCO ADMINISTERED FOR PT C/O 10/13 ABDOMINAL PAIN. WILL CONTINUE TO MONITOR.
[2019-03-10 06:59] LABS: ALBUMIN 3.2 gm/dl (3.1-4.5); CHLORIDE 112 mmol/L (98-107); POTASSIUM 4.2 mmol/L (3.5-5.1); SODIUM 142 mmol/L (136-145)
[2019-03-10 07:05] LABS: ALKALINE PHOSPHATASE 57 U/L (45-117); BUN 11 mg/dl (7-24); CREATININE 0.86 mg/dL (0.70-1.30); PHOSPHOROUS 3.7 mg/dL (2.5-4.9); SGOT/AST 22 IU/L (3-35); SGPT/ALT 58 U/L (12-78); TOTAL PROTEIN 6.2 gm/dL (6.4-8.2)
[2019-03-10 08:00] VITALS: BP 104/65
--- NOTE | 2019-03-10 10:30 | NUR ---
Fire Chief'S Aide in to talk to patient. Patient states lives at home with his fiance. There are 0 steps in the home. Physician: Dr. Jose Raul White [facility] Home health services: none Patient's level of ADLs: INDEPENDENT Patient has working utilities: yes DME: none Follow-up physician's appointment after d/c: he prefers to make his own follow up appt after discharge Does patient want to access PORTAL?: no Discharge plan discussed with patient. He lives at home with his fiance. He is independent in his ADLs and ambulation. Discussed home health care services and he denies any home needs at this time. When medically stable he will be discharged to home. He states either his fiance or mother will provide transportation on discharge. Dr. Paez consulted, IV [place], and IVFs. CT shows hepatic steatosis. LUZ MATTHEWS
[2019-03-10 12:00] VITALS: BP 125/61
[2019-03-10 16:00] VITALS: BP 112/69
[2019-03-10 20:00] VITALS: BP 122/81
[2019-03-11] VITALS (8 sets, daily range): BP systolic 101–139; BP diastolic 58–86
[2019-03-11 06:54] LABS: BASO # 0.1 10*3/uL (0.0-0.1); BASO % 0.8 % (0.0-1.0); EOS # 0.1 10*3/uL (0.0-0.4); EOS % 2.2 % (1.0-4.0); HEMATOCRIT 40.9 % (42.0-52.0); HEMOGLOBIN 13.8 g/dl (14.0-18.0); LYMPH # 2.2 10*3/uL (1.3-4.4); LYMPH % 35.5 % (27.0-41.0); MEAN CORPUSCULAR HGB 29.4 pg (27.0-31.0); MEAN CORPUSCULAR HGB CONC 33.7 g/dl (33.0-37.0); MEAN PLATELET VOLUME 11.3 fl (9.6-12.3); MONO # 0.6 10*3/uL (0.1-1.0); NEUT # 3.2 10*3/uL (2.3-7.9); NEUT % 51.1 % (47.0-73.0); PLATELET COUNT AUTOMATED 190 10*3/uL (130-400); RED CELL DISTRI WIDTH 12.6 % (0-14.5); WHITE BLOOD COUNT 6.3 10*3/uL (4.8-10.8)
[2019-03-11 07:21] LABS: ALBUMIN 3.2 gm/dl (3.1-4.5); ALKALINE PHOSPHATASE 59 U/L (45-117); BUN 9 mg/dl (7-24); CHLORIDE 110 mmol/L (98-107); CREATININE 0.93 mg/dL (0.70-1.30); SGOT/AST 27 IU/L (3-35); SGPT/ALT 57 U/L (12-78); SODIUM 141 mmol/L (136-145); TOTAL PROTEIN 6.5 gm/dL (6.4-8.2)
--- NOTE | 2019-03-11 08:04 | NUR ---
PT COMPLAINS OF NAUSEA. ZOFRAN 4MG GIVEN IVP BY YISSEL KNOWLES RN. WILL CONTINUE TO ASSESS. AAMIR BOWDEN SPLUIS ALBERTOCC
--- NOTE | 2019-03-11 08:04 | NUR ---
VITAL SIGNS ARE STABLE AT THIS TIME. PT IS SLEEPING BUT EASILY AROUSABLE. WHEN AWAKE THE PATIENT IS A&Ox3. CHRISTIAN. PATIENT IS PLEASANT AND COOPERATIVE. LUNG SOUNDS ARE CLEAR THROUGHOUT. NON LABORED. THE PATIENT HAS NO COUGH AT THE TIME OF THE EXAMINATION. HEART SOUNDS ARE NORMAL. ABDOMEN IS SOFT, NON TENDER AND NON DISTENDED. BOWEL SOUNDS X4. THE PATIENT DOES COMPLAIN OF NAUSEA AND ABDOMINAL PAIN WHICH IS LOCATED IN THE UMBILICAL REGION. RATING THE PAIN A 7/10. HE NOTES THAT HE HAS HAD A FEW EPISODES OF DIARRHEA LAST NIGHT. SKIN IS PINK, WARM AND DRY. GOOD SKIN TURGOR. CAPILLARY REFILL IS LESS THAN 3 SECONDS. WILL CONTINUE TO ASSESS. AAMIR BOWDEN [facility]
--- NOTE | 2019-03-11 08:13 | NUR ---
PATIENT RECIEVED NORCO 5/325 1 TAB PO DUE TO HAVING ABDOMINAL. WILL CONTINUE TO ASSESS. AAMIR BOWDEN SP[facility].
--- NOTE | 2019-03-11 08:13 | NUR ---
RECIEVED KELLI 1 TAB OF PO FOR COMPLAINTS OF ABDOMINAL PAIN. WILL CONTINUE TO ASSESS. AAMIR BOWDEN SPLUIS ALBERTOCC
--- NOTE | 2019-03-11 09:00 | NUR ---
Access Control Officer in to see patient. No new needs or request at this time. He denies any home needs. When medically stable he will be discharged to home. He is scheduled for an EGD today.
--- NOTE | 2019-03-11 09:12 | NUR ---
REASSESSED THE PT. SLEEPING BUT EASILY AROUSABLE. HE STATES THAT HIS PAIN AND NAUSEA HAVE SUBSIDED. WILL CONTINUE TO MONITOR. AAMIR LEYCC.
--- NOTE | 2019-03-11 11:38 | NUR ---
PATIENT IS RESTING IN HIS ROOM. PT AWAKE WATCHING TELEVISION. FAMILY AT BEDSIDE. AAMIR BOWDEN [facility]
--- NOTE | 2019-03-11 13:22 | NUR ---
PT VITALS ARE STABLE. SURGERY TO VIA CART CONDITION STABLE. AAMIR BOWDEN SPNRCC
--- NOTE | 2019-03-11 17:05 | NUR ---
[place] given per patient request for c/o abdominal pain. Will monitor.
--- NOTE | 2019-03-11 17:45 | NUR ---
Matt effective. Patient satisfied.
--- NOTE | 2019-03-11 20:00 | NUR ---
PT IS LAYING IN BED WITH EYES CLOSED AT THIS TIME. HE STATES THAT HE IS FEELING VERY NAUSEOUS AND STILL EXPERIENCING DIARRHEA WITH HIS LAST BM BEING APPROXIMATELY AN HOUR AGO. PER THE PT THE STOOL IS LOOSE AND LIGHT BROWN. RESPS ARE EASY AND NONLABORED. IV FLUIDS INFUSING PER ORDER. BED IS LOW, CALL LIGHT WITHIN REACH. WILL CONTINUE TO MONITOR.
--- NOTE | 2019-03-11 20:17 | NUR ---
PT MEDICATED WITH PRN ZOFRAN FOR C/O SEVERE NAUSEA. WILL MONITOR FOR EFFECTIVENESS.
[2019-03-12 06:29] LABS: BASO # 0.1 10*3/uL (0.0-0.1); BASO % 0.6 % (0.0-1.0); EOS # 0.2 10*3/uL (0.0-0.4); EOS % 1.9 % (1.0-4.0); HEMATOCRIT 42.7 % (42.0-52.0); HEMOGLOBIN 14.6 g/dl (14.0-18.0); LYMPH # 2.2 10*3/uL (1.3-4.4); LYMPH % 28.1 % (27.0-41.0); MEAN CELL VOLUME 85.7 fl (80.0-94.0); MEAN CORPUSCULAR HGB 29.3 pg (27.0-31.0); MEAN CORPUSCULAR HGB CONC 34.2 g/dl (33.0-37.0); MEAN PLATELET VOLUME 11.1 fl (9.6-12.3); MONO # 0.7 10*3/uL (0.1-1.0); MONO % 9.1 % (3.0-9.0); NEUT # 4.7 10*3/uL (2.3-7.9); NEUT % 59.5 % (47.0-73.0); PLATELET COUNT AUTOMATED 193 10*3/uL (130-400); RED BLOOD COUNT 4.98 10*6/uL (4.50-5.90); RED CELL DISTRI WIDTH 12.6 % (0-14.5); WHITE BLOOD COUNT 7.9 10*3/uL (4.8-10.8)
[2019-03-12 06:48] LABS: ALBUMIN 3.3 gm/dl (3.1-4.5); ALKALINE PHOSPHATASE 65 U/L (45-117); BUN 13 mg/dl (7-24); CHLORIDE 111 mmol/L (98-107); CREATININE 0.94 mg/dL (0.70-1.30); POTASSIUM 3.9 mmol/L (3.5-5.1); SGOT/AST 24 IU/L (3-35); SGPT/ALT 57 U/L (12-78); SODIUM 142 mmol/L (136-145); TOTAL PROTEIN 6.5 gm/dL (6.4-8.2)
[2019-03-12 08:00] VITALS: BP 112/55
[2019-03-12 12:00] VITALS: BP 113/66
--- NOTE | 2019-03-12 15:31 | NUR ---
PATIENT DISCHARGED TO HOME.
== END 2019-03-12 15:48 | disposition home or self-care (01) | DRG 392 ==
LOC: ED 08:45 → EDHOLD 13:18 → 5E 13:18
PROVIDERS: Emergency Medicine; Internal Medicine; Nurse Practitioner Family; Student in an Organized Health Care Education/Training Program; ADMIT Internal Medicine
PROC: 0DB78ZX Excision of Stomach, Pylorus, Via Natural or Artificial Opening Endoscopic, Diagnostic (ICD-10-PCS; principal; 2019-03-11)
DX: K29.70 Gastritis, unspecified, without bleeding (principal); G43.909 Migraine, unspecified, not intractable, without status migrainosus; I45.6 Pre-excitation syndrome; R74.0 Nonspecific elevation of levels of transaminase and lactic acid dehydrogenase [LDH]; R91.1 Solitary pulmonary nodule; E87.8 Other disorders of electrolyte and fluid balance, not elsewhere classified; R73.9 Hyperglycemia, unspecified; K76.0 Fatty (change of) liver, not elsewhere classified; E86.9 Volume depletion, unspecified; F17.210 Nicotine dependence, cigarettes, uncomplicated; Z82.3 Family history of stroke; Z82.5 Family history of asthma and other chronic lower respiratory diseases; Z82.61 Family history of arthritis; Z82.49 Family history of ischemic heart disease and other diseases of the circulatory system; Z90.89 Acquired absence of other organs; Z88.0 Allergy status to penicillin; Z88.2 Allergy status to sulfonamides; Z88.8 Allergy status to other drugs, medicaments and biological substances; Z79.899 Other long term (current) drug therapy; Z71.6 Tobacco abuse counseling

== ENCOUNTER → 2019-04-02 | Outpatient (CLI) | payer OTHER ==
[~2019-04-02] MED LIST changes: +CARAFATE1 G1 PO; +LOMOTIL 2.5-0.1 EACH PO
== END | disposition home or self-care (01) ==
LOC: LAB 10:32
DX: R19.7 Diarrhea, unspecified (principal)

== ENCOUNTER → 2019-04-13 | Day surgery (SDC) | payer OTHER ==
[~2019-04-13] VITALS: Ht 187.9 cm; Wt 110.2 kg
[2019-04-13 10:46] VITALS: BP 130/74
[2019-04-13 11:50] VITALS: BP 105/56
[2019-04-13 12:05] VITALS: BP 104/61
== END | disposition home or self-care (01) ==
LOC: SDC 04-11 11:45
DX: R19.7 Diarrhea, unspecified (principal); I10 Essential (primary) hypertension; J45.909 Unspecified asthma, uncomplicated; Z88.0 Allergy status to penicillin; Z88.2 Allergy status to sulfonamides; Z88.8 Allergy status to other drugs, medicaments and biological substances; Z79.899 Other long term (current) drug therapy; Z98.890 Other specified postprocedural states; Z87.891 Personal history of nicotine dependence; Z82.5 Family history of asthma and other chronic lower respiratory diseases; Z82.49 Family history of ischemic heart disease and other diseases of the circulatory system

== ENCOUNTER → 2019-07-11 | Outpatient (CLI) | payer OTHER ==
[~2019-07-11] MED LIST changes: +CYCLOBENZAPRINE10 MG PO; +TYLENOL325 M1 PO
[2019-07-11 19:50] LABS: BASO # 0.1 10*3/uL (0.0-0.1); BASO % 0.8 % (0.0-1.0); EOS # 0.2 10*3/uL (0.0-0.4); EOS % 2.9 % (1.0-4.0); HEMATOCRIT 48.6 % (42.0-52.0); HEMOGLOBIN 16.2 g/dl (14.0-18.0); LYMPH # 3.1 10*3/uL (1.3-4.4); LYMPH % 39.4 % (27.0-41.0); MEAN CELL VOLUME 88.4 fl (80.0-94.0); MEAN CORPUSCULAR HGB 29.5 pg (27.0-31.0); MEAN CORPUSCULAR HGB CONC 33.3 g/dl (33.0-37.0); MEAN PLATELET VOLUME 11.4 fl (9.6-12.3); MONO # 0.7 10*3/uL (0.1-1.0); MONO % 8.3 % (3.0-9.0); NEUT # 3.8 10*3/uL (2.3-7.9); NEUT % 48.1 % (47.0-73.0); PLATELET COUNT AUTOMATED 185 10*3/uL (130-400); RED CELL DISTRI WIDTH 13.1 % (0-14.5); WHITE BLOOD COUNT 7.9 10*3/uL (4.8-10.8)
[2019-07-11 20:10] LABS: ALBUMIN 3.7 gm/dl (3.1-4.5); ALKALINE PHOSPHATASE 57 U/L (45-117); BUN 14 mg/dl (7-24); CHLORIDE 111 mmol/L (98-107); CREATININE 0.93 mg/dL (0.70-1.30); SGOT/AST 26 IU/L (3-35); SODIUM 141 mmol/L (136-145); TOTAL PROTEIN 7.3 gm/dL (6.4-8.2)
[2019-07-11 20:22] LABS: SGPT/ALT 50 U/L (12-78)
== END | disposition home or self-care (01) ==
LOC: LAB 19:02 → RAD 19:02
PROVIDERS: Internal Medicine
DX: J18.9 Pneumonia, unspecified organism (principal)

== ENCOUNTER 2019-07-12 14:17 | Emergency (ER) | payer OTHER ==
[~2019-07-12 14:17] MED LIST changes: -CYCLOBENZAPRINE10 MG PO; -TYLENOL325 M1 PO
[2019-07-12 14:38] LABS: BASO # 0.1 10*3/uL (0.0-0.1); BASO % 1.2 % (0.0-1.0); EOS # 0.2 10*3/uL (0.0-0.4); EOS % 3.2 % (1.0-4.0); HEMATOCRIT 46.3 % (42.0-52.0); HEMOGLOBIN 15.6 g/dl (14.0-18.0); LYMPH # 2.8 10*3/uL (1.3-4.4); LYMPH % 37.2 % (27.0-41.0); MEAN CELL VOLUME 87.4 fl (80.0-94.0); MEAN CORPUSCULAR HGB 29.4 pg (27.0-31.0); MEAN CORPUSCULAR HGB CONC 33.7 g/dl (33.0-37.0); MEAN PLATELET VOLUME 11.8 fl (9.6-12.3); MONO # 0.7 10*3/uL (0.1-1.0); MONO % 9.6 % (3.0-9.0); NEUT # 3.7 10*3/uL (2.3-7.9); PLATELET COUNT AUTOMATED 188 10*3/uL (130-400); RED CELL DISTRI WIDTH 13.1 % (0-14.5); WHITE BLOOD COUNT 7.6 10*3/uL (4.8-10.8)
[2019-07-12 14:53] LABS: ALBUMIN 3.7 gm/dl (3.1-4.5); ALKALINE PHOSPHATASE 54 U/L (45-117); BUN 16 mg/dl (7-24); CHLORIDE 113 mmol/L (98-107); CREATININE 0.81 mg/dL (0.70-1.30); POTASSIUM 4.3 mmol/L (3.5-5.1); SGOT/AST 17 IU/L (3-35); SGPT/ALT 41 U/L (12-78); SODIUM 142 mmol/L (136-145)
[2019-07-12 14:57] LABS: TROPONIN I < 0.015 ng/ml (<0.045)
[2019-07-12 15:01] LABS: ACT PARTIAL THROMBO TIME 26.2 SECONDS (20.0-32.1); INTERNATIONAL NORM RATIO 0.9 (2.0-3.5)
[2019-07-12 15:43] VITALS: BP 136/85
[2019-07-12 15:51] LABS: BILIRUBIN NEGATIVE (NEGATIVE); BLOOD NEGATIVE (NEGATIVE); CLARITY CLEAR (CLEAR); COLOR YELLOW (YELLOW); GLUCOSE NEGATIVE (NEGATIVE); KETONE NEGATIVE (NEGATIVE); LEUKO ESTERASE NEGATIVE (NEGATIVE); NITRITE NEGATIVE (NEGATIVE); SPECIFIC GRAVITY 1.025 (1.005-1.030); UROBILINOGEN 0.2 E.U./dl (0.2-1.0)
[2019-07-12 15:52] LABS: WBC 0-2 wbc/hpf (0-5)
[2019-07-12] MEDS ORDERED: NAPROSYN500 MG PO (16:16)
[2019-07-12] MEDS ORDERED: CYCLOBENZAPRINE10 MG PO (16:16)
[2019-07-12] MEDS ORDERED: TYLENOL325 M1 PO (16:16)
== END 2019-07-12 16:30 | disposition home or self-care (01) ==
LOC: ED 14:17
PROVIDERS: Emergency Medicine
DX: M54.9 Dorsalgia, unspecified (principal); R50.9 Fever, unspecified; J02.9 Acute pharyngitis, unspecified; Z71.89 Other specified counseling; Z88.0 Allergy status to penicillin; Z88.2 Allergy status to sulfonamides; Z88.8 Allergy status to other drugs, medicaments and biological substances; Z79.899 Other long term (current) drug therapy; Z90.49 Acquired absence of other specified parts of digestive tract

== ENCOUNTER → 2019-07-12 | Outpatient (CLI) | payer OTHER | END | disposition home or self-care (01) | LOC: COVID19 10:45 → RESCLI 13:01 → LAB 13:01 → COVID19 13:01 | DX: R06.02 Shortness of breath (principal) ==

== ENCOUNTER → 2019-07-15 | Outpatient (CLI) | payer OTHER ==
[~2019-07-15] MED LIST changes: +CYCLOBENZAPRINE10 MG PO; +TYLENOL325 M1 PO
== END | disposition home or self-care (01) ==
LOC: RAD 20:43
DX: J18.9 Pneumonia, unspecified organism (principal); R91.8 Other nonspecific abnormal finding of lung field

== ENCOUNTER 2019-11-01 13:51 | Emergency (ER) | payer OTHER ==
[~2019-11-01] VITALS: Ht 187.9 cm; Wt 106.6 kg
[2019-11-01 13:57] VITALS: BP 139/94
== END 2019-11-01 15:43 | disposition short-term general hospital (02) ==
LOC: ED 13:51
DX: M54.5 Low back pain (principal); Z88.0 Allergy status to penicillin; Z88.8 Allergy status to other drugs, medicaments and biological substances; Z88.2 Allergy status to sulfonamides; Z79.899 Other long term (current) drug therapy; Z90.49 Acquired absence of other specified parts of digestive tract

== ENCOUNTER → 2020-03-13 | Outpatient (CLI) | payer BC | END | disposition home or self-care (01) | LOC: COVID19 12:03 | PROVIDERS: ATTEND Internal Medicine | DX: Z20.828 Contact with and (suspected) exposure to other viral communicable diseases (principal) ==

== ENCOUNTER → 2020-03-15 | Outpatient (CLI) | payer BC | END | disposition home or self-care (01) | LOC: COVID19 11:23 | PROVIDERS: ATTEND Internal Medicine | DX: Z20.828 Contact with and (suspected) exposure to other viral communicable diseases (principal) ==

== ENCOUNTER 2020-11-21 00:58 | Emergency (ER) | payer BC ==
[~2020-11-21] VITALS: Ht 187.9 cm; Wt 117.9 kg
[2020-11-21 01:12] VITALS: BP 137/96
[2020-11-21 01:18] LABS: BASO # 0.1 10*3/uL (0.0-0.1); BASO % 0.8 % (0.0-1.0); EOS # 0.2 10*3/uL (0.0-0.4); EOS % 1.9 % (1.0-4.0); HEMATOCRIT 46.3 % (42.0-52.0); LYMPH # 3.5 10*3/uL (1.3-4.4); LYMPH % 29.6 % (27.0-41.0); MEAN CORPUSCULAR HGB 29.6 pg (27.0-31.0); MEAN CORPUSCULAR HGB CONC 33.3 g/dl (33.0-37.0); MEAN PLATELET VOLUME 11.6 fl (9.6-12.3); MONO # 1.1 10*3/uL (0.1-1.0); MONO % 9.6 % (3.0-9.0); NEUT # 6.8 10*3/uL (2.3-7.9); NEUT % 56.8 % (47.0-73.0); PLATELET COUNT AUTOMATED 208 10*3/uL (130-400); RED CELL DISTRI WIDTH 13.2 % (0-14.5); WHITE BLOOD COUNT 11.9 10*3/uL (4.8-10.8)
[2020-11-21 01:37] LABS: ALBUMIN 3.8 gm/dl (3.1-4.5); ALKALINE PHOSPHATASE 69 U/L (45-117); BUN 15 mg/dl (7-24); CHLORIDE 108 mmol/L (98-107); CREATININE 1.02 mg/dL (0.70-1.30); POTASSIUM 4.1 mmol/L (3.5-5.1); SGOT/AST 20 IU/L (3-35); SGPT/ALT 43 U/L (12-78); SODIUM 140 mmol/L (136-145); TOTAL PROTEIN 7.6 gm/dL (6.4-8.2)
[2020-11-21 01:40] LABS: TROPONIN I < 0.015 ng/ml (<0.045)
== END 2020-11-21 04:46 | disposition home or self-care (01) ==
LOC: ED 00:58
PROVIDERS: Internal Medicine
DX: R07.9 Chest pain, unspecified (principal); F17.210 Nicotine dependence, cigarettes, uncomplicated; Z88.0 Allergy status to penicillin; Z88.2 Allergy status to sulfonamides; Z88.8 Allergy status to other drugs, medicaments and biological substances; Z88.1 Allergy status to other antibiotic agents; Z79.899 Other long term (current) drug therapy

== ENCOUNTER → 2020-11-23 | Outpatient (CLI) | payer BC | END | disposition home or self-care (01) | LOC: RAD 12:21 | PROVIDERS: ATTEND Internal Medicine | DX: M54.6 Pain in thoracic spine (principal) ==

== ENCOUNTER 2021-03-27 10:27 | Emergency (ER) | payer BC ==
[~2021-03-27] VITALS: Ht 187.9 cm; Wt 70.3 kg
[2021-03-27 12:01] LABS: BILIRUBIN Negative (Negative); BLOOD Trace-Lysed (Negative); CLARITY Clear (Clear); COLOR Yellow (Yellow); GLUCOSE Negative (Negative); KETONE Negative (Negative); LEUKO ESTERASE Negative (Negative); NITRITE Negative (Negative); SPECIFIC GRAVITY >= 1.030 (1.001-1.030); UROBILINOGEN 0.2 E.U./dl (0.0-1.0)
[2021-03-27 12:23] LABS: CALCIUM OXALATE CRYSTALS 1+; MUCOUS TRACE; RBC 0-2 rbc/hpf (0-2); WBC 0-2 wbc/hpf (0-5)
[2021-03-27 13:10] LABS: BASO # 0.1 10*3/uL (0.0-0.1); BASO % 0.6 % (0.0-1.0); EOS # 0.3 10*3/uL (0.0-0.4); EOS % 2.4 % (1.0-4.0); HEMATOCRIT 45.5 % (42.0-52.0); LYMPH # 2.8 10*3/uL (1.3-4.4); LYMPH % 24.7 % (27.0-41.0); MEAN CORPUSCULAR HGB 29.4 pg (27.0-31.0); MEAN CORPUSCULAR HGB CONC 33.8 g/dl (33.0-37.0); MEAN PLATELET VOLUME 11.3 fl (9.6-12.3); MONO # 0.9 10*3/uL (0.1-1.0); MONO % 7.8 % (3.0-9.0); NEUT # 7.2 10*3/uL (2.3-7.9); PLATELET COUNT AUTOMATED 228 10*3/uL (130-400); RED BLOOD COUNT 5.23 10*6/uL (4.50-5.90); RED CELL DISTRI WIDTH 12.5 % (0-14.5); WHITE BLOOD COUNT 11.3 10*3/uL (4.8-10.8)
[2021-03-27 13:21] LABS: ACT PARTIAL THROMBO TIME 25.4 SECONDS (20.0-32.1); INTERNATIONAL NORM RATIO 0.9 (2.0-3.5)
[2021-03-27 13:28] LABS: ALBUMIN 3.6 gm/dl (3.1-4.5); ALKALINE PHOSPHATASE 70 U/L (45-117); BUN 14 mg/dl (7-24); CHLORIDE 109 mmol/L (98-107); CREATININE 0.85 mg/dL (0.70-1.30); LIPASE 55 U/L (73-393); POTASSIUM 3.8 mmol/L (3.5-5.1); SGOT/AST 18 IU/L (3-35); SGPT/ALT 52 U/L (12-78); SODIUM 142 mmol/L (136-145); TOTAL PROTEIN 7.4 gm/dL (6.4-8.2)
[2021-03-27 14:30] VITALS: BP 125/75
[2021-03-27] MEDS ORDERED: HYDROCODONE-AC1 EAC1 PO (15:47)
== END 2021-03-27 18:59 | disposition home or self-care (01) ==
LOC: ED 10:27
PROVIDERS: Physician Assistant
DX: N23 Unspecified renal colic (principal)

== ENCOUNTER 2021-05-16 21:38 | Emergency (ER) | payer BC ==
[~2021-05-16 21:38] MED LIST changes: +HYDROCODONE-AC1 EAC1 PO
[2021-05-16] MEDS ORDERED: TREXIMET 85-501 EACH PO (21:48)
[2021-05-16] MEDS ORDERED: ZESTRIL20 MG PO (21:49)
[2021-05-16] MEDS ORDERED: QUDEXY XR50 MG PO (21:49)
[2021-05-16] MEDS ORDERED: PROPRANOLOL HCL60 MG PO (21:49)
[2021-05-16] MEDS ORDERED: ZOFRAN4 MG PO (21:50)
[2021-05-16 22:18] LABS: BASO # 0.1 10*3/uL (0.0-0.1); EOS # 0.3 10*3/uL (0.0-0.4); EOS % 3.1 % (1.0-4.0); HEMATOCRIT 44.1 % (42.0-52.0); LYMPH # 3.9 10*3/uL (1.3-4.4); LYMPH % 47.1 % (27.0-41.0); MEAN CELL VOLUME 83.7 fl (80.0-94.0); MEAN CORPUSCULAR HGB 29.2 pg (27.0-31.0); MEAN CORPUSCULAR HGB CONC 34.9 g/dl (33.0-37.0); MEAN PLATELET VOLUME 11.3 fl (9.6-12.3); MONO # 0.9 10*3/uL (0.1-1.0); NEUT # 3.1 10*3/uL (2.3-7.9); NEUT % 37.4 % (47.0-73.0); PLATELET COUNT AUTOMATED 223 10*3/uL (130-400); RED BLOOD COUNT 5.27 10*6/uL (4.50-5.90); RED CELL DISTRI WIDTH 12.7 % (0-14.5); WHITE BLOOD COUNT 8.3 10*3/uL (4.8-10.8)
[2021-05-16 22:46] LABS: ACT PARTIAL THROMBO TIME 26.4 SECONDS (20.0-32.1)
[2021-05-16 22:49] LABS: ALBUMIN 3.7 gm/dl (3.1-4.5); ALKALINE PHOSPHATASE 65 U/L (45-117); BUN 14 mg/dl (7-24); CHLORIDE 115 mmol/L (98-107); CREATININE 1.13 mg/dL (0.70-1.30); POTASSIUM 3.9 mmol/L (3.5-5.1); SGOT/AST 16 IU/L (3-35); SGPT/ALT 32 U/L (12-78); SODIUM 142 mmol/L (136-145); TOTAL PROTEIN 7.2 gm/dL (6.4-8.2)
[2021-05-17 00:30] VITALS: BP 112/71
== END 2021-05-17 02:18 | disposition home or self-care (01) ==
LOC: ED 21:38
PROVIDERS: Physician Assistant
DX: G43.909 Migraine, unspecified, not intractable, without status migrainosus (principal); R07.89 Other chest pain; F17.210 Nicotine dependence, cigarettes, uncomplicated; Z88.0 Allergy status to penicillin; Z88.2 Allergy status to sulfonamides; Z88.1 Allergy status to other antibiotic agents; Z88.8 Allergy status to other drugs, medicaments and biological substances; Z79.899 Other long term (current) drug therapy; Z90.49 Acquired absence of other specified parts of digestive tract; Z98.890 Other specified postprocedural states

== ENCOUNTER → 2021-05-31 | Outpatient (CLI) | payer BC ==
[~2021-05-31] MED LIST changes: +PROPRANOLOL HCL60 MG PO; +QUDEXY XR50 MG PO; +TREXIMET 85-501 EACH PO; +ZESTRIL20 MG PO
[2021-05-31 09:04] LABS: BUN 18 mg/dl (7-24); CHLORIDE 108 mmol/L (98-107); POTASSIUM 4.3 mmol/L (3.5-5.1); SODIUM 136 mmol/L (136-145)
== END | disposition home or self-care (01) ==
LOC: LAB 08:31
PROVIDERS: ATTEND Internal Medicine Cardiovascular Disease
DX: I71.2 Thoracic aortic aneurysm, without rupture (principal)

== ENCOUNTER 2021-10-26 06:20 | Emergency (ER) | payer OTHER ==
[~2021-10-26] VITALS: Ht 187.9 cm; Wt 113.4 kg
[2021-10-26 06:42] LABS: BASO # 0.1 10*3/uL (0.0-0.1); BASO % 1.1 % (0.0-1.0); EOS # 0.2 10*3/uL (0.0-0.4); EOS % 3.7 % (1.0-4.0); LYMPH # 2.5 10*3/uL (1.3-4.4); LYMPH % 39.6 % (27.0-41.0); MEAN CELL VOLUME 87.8 fl (80.0-94.0); MEAN CORPUSCULAR HGB 29.3 pg (27.0-31.0); MEAN CORPUSCULAR HGB CONC 33.4 g/dl (33.0-37.0); MEAN PLATELET VOLUME 11.7 fl (9.6-12.3); MONO # 0.6 10*3/uL (0.1-1.0); MONO % 9.6 % (3.0-9.0); NEUT # 2.8 10*3/uL (2.3-7.9); NEUT % 45.2 % (47.0-73.0); PLATELET COUNT AUTOMATED 181 10*3/uL (130-400); RED BLOOD COUNT 5.01 10*6/uL (4.50-5.90); WHITE BLOOD COUNT 6.3 10*3/uL (4.8-10.8)
[2021-10-26 06:53] LABS: ACT PARTIAL THROMBO TIME 27.7 SECONDS (20.0-32.1); INTERNATIONAL NORM RATIO 0.9 (2.0-3.5)
[2021-10-26 07:01] LABS: ALKALINE PHOSPHATASE 61 U/L (45-117); BUN 21 mg/dl (7-24); CHLORIDE 111 mmol/L (98-107); CREATININE 1.06 mg/dL (0.70-1.30); POTASSIUM 4.4 mmol/L (3.5-5.1); SGOT/AST 13 IU/L (3-35); SGPT/ALT 25 U/L (12-78); SODIUM 140 mmol/L (136-145); TOTAL PROTEIN 6.9 gm/dL (6.4-8.2)
[2021-10-26 08:22] VITALS: BP 118/81
== END 2021-10-26 08:56 | disposition home or self-care (01) ==
LOC: ED 06:20
PROVIDERS: Internal Medicine
DX: R07.9 Chest pain, unspecified (principal); Z88.0 Allergy status to penicillin; Z88.8 Allergy status to other drugs, medicaments and biological substances; Z88.1 Allergy status to other antibiotic agents; Z79.899 Other long term (current) drug therapy; F17.210 Nicotine dependence, cigarettes, uncomplicated

== ENCOUNTER 2022-11-13 10:34 | Emergency (ER) | payer OTHER ==
[~2022-11-13] VITALS: Ht 187.9 cm; Wt 115.7 kg
[2022-11-13 10:48] VITALS: BP 128/96
[2022-11-13 11:49] LABS: BASO # 0.1 10*3/uL (0.0-0.1); BASO % 1.3 % (0.0-1.0); EOS # 0.2 10*3/uL (0.0-0.4); EOS % 2.8 % (1.0-4.0); HEMATOCRIT 48.4 % (42.0-52.0); LYMPH # 2.1 10*3/uL (1.3-4.4); LYMPH % 32.8 % (27.0-41.0); MEAN CELL VOLUME 86.6 fl (80.0-94.0); MEAN CORPUSCULAR HGB 30.1 pg (27.0-31.0); MEAN CORPUSCULAR HGB CONC 34.7 g/dl (33.0-37.0); MEAN PLATELET VOLUME 11.6 fl (9.6-12.3); MONO # 0.6 10*3/uL (0.1-1.0); NEUT # 3.4 10*3/uL (2.3-7.9); NEUT % 53.3 % (47.0-73.0); PLATELET COUNT AUTOMATED 188 10*3/uL (130-400); RED BLOOD COUNT 5.59 10*6/uL (4.50-5.90); RED CELL DISTRI WIDTH 12.7 % (0-14.5); WHITE BLOOD COUNT 6.3 10*3/uL (4.8-10.8)
[2022-11-13 12:10] LABS: ALKALINE PHOSPHATASE 62 U/L (46-116); BUN 15 mg/dl (9-23); CHLORIDE 108 mmol/L (98-107); POTASSIUM 4.3 mmol/L (3.4-5.1); SGPT/ALT 40 U/L (10-49); TOTAL PROTEIN 7.6 gm/dL (6.0-8.0)
== END 2022-11-13 12:48 | disposition home or self-care (01) ==
LOC: ED 10:34
PROVIDERS: Emergency Medicine
DX: R07.89 Other chest pain (principal); R06.02 Shortness of breath; R05.9 Cough, unspecified; J45.909 Unspecified asthma, uncomplicated; G43.909 Migraine, unspecified, not intractable, without status migrainosus; Z88.0 Allergy status to penicillin; Z88.2 Allergy status to sulfonamides; Z88.8 Allergy status to other drugs, medicaments and biological substances; Z90.49 Acquired absence of other specified parts of digestive tract; Z98.890 Other specified postprocedural states; F17.210 Nicotine dependence, cigarettes, uncomplicated

== ENCOUNTER 2023-03-26 12:41 | Emergency (ER) | payer OTHER ==
[~2023-03-26] VITALS: Ht 187.9 cm; Wt 115.7 kg
[2023-03-26 12:56] VITALS: BP 149/114
[2023-03-26] MEDS ORDERED: PAXLOVID 300-11 EAC3 PO (12:58)
[2023-03-26 14:26] LABS: HEMATOCRIT 46.5 % (42.0-52.0); MANUAL DIFF REFLEX YES; MEAN CELL VOLUME 87.9 fl (80.0-94.0); MEAN CORPUSCULAR HGB 29.5 pg (27.0-31.0); MEAN CORPUSCULAR HGB CONC 33.5 g/dl (33.0-37.0); MEAN PLATELET VOLUME 11.1 fl (9.6-12.3); PLATELET COUNT AUTOMATED 200 10*3/uL (130-400); RED BLOOD COUNT 5.29 10*6/uL (4.50-5.90); RED CELL DISTRI WIDTH 12.8 % (0-14.5); WHITE BLOOD COUNT 8.3 10*3/uL (4.8-10.8)
[2023-03-26 14:44] LABS: ALKALINE PHOSPHATASE 60 U/L (46-116); BUN 10 mg/dl (9-23); CHLORIDE 106 mmol/L (98-107); POTASSIUM 4.6 mmol/L (3.4-5.1); SGPT/ALT 33 U/L (5-49); TOTAL PROTEIN 7.8 gm/dL (6.0-8.0)
[2023-03-26 14:51] LABS: ATYPICAL LYMPHS 3 % (0-0); TOTAL CELLS COUNTED 100 #CELLS
[2023-03-26 14:52] LABS: PLATELET SUFFICIENCY NORMAL (NORMAL)
[2023-03-26 14:53] LABS: SPHEROCYTES FEW
[2023-03-26] MEDS ORDERED: DEXAMETHASONE6 MG PO (15:01)
== END 2023-03-26 15:04 | disposition home or self-care (01) ==
LOC: ED 12:41
PROVIDERS: Physician Assistant Medical
DX: U07.1 COVID-19 (principal); R19.7 Diarrhea, unspecified; J45.909 Unspecified asthma, uncomplicated; G43.909 Migraine, unspecified, not intractable, without status migrainosus; Z88.0 Allergy status to penicillin; Z88.2 Allergy status to sulfonamides; Z88.8 Allergy status to other drugs, medicaments and biological substances; Z98.890 Other specified postprocedural states; Z90.49 Acquired absence of other specified parts of digestive tract; F17.210 Nicotine dependence, cigarettes, uncomplicated

== ENCOUNTER 2023-05-14 07:21 | Emergency (ER) | payer OTHER ==
[~2023-05-14] VITALS: Ht 187.9 cm; Wt 113.4 kg
[~2023-05-14 07:21] MED LIST changes: +DEXAMETHASONE6 MG PO; +PAXLOVID 300-11 EAC3 PO
[2023-05-14 07:28] VITALS: BP 132/88
[2023-05-14] MEDS ORDERED: Dexamethasone Sodium Phospha 20 MG/5 ML VIAL IM ONE ×2 (07:35→08:40)
[2023-05-14] MEDS ORDERED: Ketorolac Tromethamine 60 MG/2 ML VIAL IM ONE ×2 (07:35→08:40)
[2023-05-14] MEDS ORDERED: Cyclobenzaprine Hydrochlorid 10 MG TAB PO ONE (08:40)
[2023-05-14] MEDS ORDERED: ZANAFLEX2 M1 PO (08:44)
[2023-05-14] MEDS ORDERED: MELOXICAM15 MG PO (08:44)
== END 2023-05-14 08:51 | disposition home or self-care (01) ==
LOC: ED 07:21
DX: M62.830 Muscle spasm of back (principal); J45.909 Unspecified asthma, uncomplicated; I48.91 Unspecified atrial fibrillation; G43.909 Migraine, unspecified, not intractable, without status migrainosus; Z88.0 Allergy status to penicillin; Z88.2 Allergy status to sulfonamides; Z88.8 Allergy status to other drugs, medicaments and biological substances; Z90.49 Acquired absence of other specified parts of digestive tract; Z98.890 Other specified postprocedural states; F17.210 Nicotine dependence, cigarettes, uncomplicated

== ENCOUNTER 2023-07-13 23:25 | Emergency (ER) | payer OTHER ==
[~2023-07-13 23:25] MED LIST changes: +MELOXICAM15 MG PO; +ZANAFLEX2 M1 PO
[2023-07-13 23:52] VITALS: BP 133/102
[2023-07-14 00:35] LABS: BASO # 0.1 10*3/uL (0.0-0.1); BASO % 1.3 % (0.0-1.0); EOS # 0.2 10*3/uL (0.0-0.4); EOS % 4.4 % (1.0-4.0); HEMATOCRIT 43.2 % (42.0-52.0); LYMPH # 1.1 10*3/uL (1.3-4.4); LYMPH % 23.4 % (27.0-41.0); MEAN CELL VOLUME 86.6 fl (80.0-94.0); MEAN CORPUSCULAR HGB 28.9 pg (27.0-31.0); MEAN CORPUSCULAR HGB CONC 33.3 g/dl (33.0-37.0); MONO # 0.8 10*3/uL (0.1-1.0); MONO % 17.5 % (3.0-9.0); NEUT # 2.5 10*3/uL (2.3-7.9); NEUT % 52.1 % (47.0-73.0); PLATELET COUNT AUTOMATED 165 10*3/uL (130-400); RED BLOOD COUNT 4.99 10*6/uL (4.50-5.90); RED CELL DISTRI WIDTH 12.8 % (0-14.5); WHITE BLOOD COUNT 4.8 10*3/uL (4.8-10.8)
[2023-07-14 00:56] LABS: ALKALINE PHOSPHATASE 76 U/L (46-116); BUN 11 mg/dl (9-23); CHLORIDE 108 mmol/L (98-107); POTASSIUM 3.9 mmol/L (3.4-5.1); SGPT/ALT 81 U/L (5-49)
== END 2023-07-14 02:42 | disposition left against medical advice (07) ==
LOC: ED 23:25
PROVIDERS: Internal Medicine
DX: B34.9 Viral infection, unspecified (principal); Z20.822 Contact with and (suspected) exposure to COVID-19; J45.909 Unspecified asthma, uncomplicated; G43.909 Migraine, unspecified, not intractable, without status migrainosus; Z88.0 Allergy status to penicillin; Z88.2 Allergy status to sulfonamides; Z88.8 Allergy status to other drugs, medicaments and biological substances; Z90.49 Acquired absence of other specified parts of digestive tract; Z98.890 Other specified postprocedural states; F17.210 Nicotine dependence, cigarettes, uncomplicated

== ENCOUNTER 2024-02-12 11:55 | Emergency (ER) | payer OTHER ==
[~2024-02-12] VITALS: Ht 187.9 cm; Wt 108.9 kg
[2024-02-12] MEDS ORDERED: EMGALITY120 MG/1 M SQ (12:46)
[2024-02-12 12:49] VITALS: BP 124/95
[2024-02-12] MEDS ORDERED: Ondansetron Hydrochloride 4 MG/2 ML VIAL IV ONE (13:45)
[2024-02-12] MEDS ORDERED: SODIUM CHLORIDE 0.9% 1,000 ML IV ONE (13:45)
[2024-02-12] MEDS ORDERED: Ketorolac Tromethamine 15 MG/ML VIAL IV ONE (13:45)
[2024-02-12] MEDS ORDERED: MORPHINE Sulfate 2 MG/ML SYR IV ONE (13:45)
[2024-02-12 14:05] LABS: BASO # 0.1 10*3/uL (0.0-0.1); BASO % 1.1 % (0.0-1.0); EOS # 0.2 10*3/uL (0.0-0.4); HEMATOCRIT 44.4 % (42.0-52.0); MEAN CORPUSCULAR HGB 29.3 pg (27.0-31.0); MEAN PLATELET VOLUME 11.3 fl (9.6-12.3); MONO # 0.7 10*3/uL (0.1-1.0); MONO % 8.8 % (3.0-9.0); NEUT # 3.8 10*3/uL (2.3-7.9); NEUT % 50.9 % (47.0-73.0); PLATELET COUNT AUTOMATED 182 10*3/uL (130-400); RED BLOOD COUNT 5.16 10*6/uL (4.50-5.90); RED CELL DISTRI WIDTH 13.4 % (0-14.5); WHITE BLOOD COUNT 7.4 10*3/uL (4.8-10.8)
[2024-02-12 14:25] LABS: BUN 13 mg/dl (9-23); CHLORIDE 112 mmol/L (98-107); POTASSIUM 3.6 mmol/L (3.4-5.1)
[2024-02-12] MEDS ORDERED: TRAMADOL HCL50 MG PO (15:21)
== END 2024-02-12 15:26 | disposition home or self-care (01) ==
LOC: ED 11:55
PROVIDERS: Emergency Medicine
DX: R07.89 Other chest pain (principal); R00.2 Palpitations; I48.91 Unspecified atrial fibrillation; F17.210 Nicotine dependence, cigarettes, uncomplicated; Z88.0 Allergy status to penicillin; Z88.2 Allergy status to sulfonamides; Z88.8 Allergy status to other drugs, medicaments and biological substances; Z79.899 Other long term (current) drug therapy; Z90.49 Acquired absence of other specified parts of digestive tract

== ENCOUNTER → 2024-02-15 | Outpatient (CLI) | payer OTHER ==
[~2024-02-15] MED LIST changes: +EMGALITY120 MG/1 M SQ
== END | disposition home or self-care (01) ==
LOC: CARD 07:48
PROVIDERS: ATTEND Internal Medicine
DX: R00.1 Bradycardia, unspecified (principal); R00.2 Palpitations

== ENCOUNTER → 2024-03-18 | Outpatient (CLI) | payer OTHER | END | disposition home or self-care (01) | LOC: LAB 09:17 | PROVIDERS: ATTEND Psychiatry & Neurology Neurology | DX: R25.1 Tremor, unspecified (principal) ==

== ENCOUNTER 2024-06-15 20:08 | Emergency (ER) | payer OTHER ==
[~2024-06-15] VITALS: Ht 187.9 cm; Wt 108.9 kg
[2024-06-15 20:19] VITALS: BP 152/96
== END 2024-06-15 20:57 | disposition home or self-care (01) ==
LOC: ED 20:08
DX: K08.89 Other specified disorders of teeth and supporting structures (principal); J45.909 Unspecified asthma, uncomplicated; G43.909 Migraine, unspecified, not intractable, without status migrainosus; Z79.899 Other long term (current) drug therapy; Z88.0 Allergy status to penicillin; Z88.2 Allergy status to sulfonamides; Z88.8 Allergy status to other drugs, medicaments and biological substances; Z90.49 Acquired absence of other specified parts of digestive tract; Z98.890 Other specified postprocedural states

== ENCOUNTER 2024-06-17 15:43 | Emergency (ER) | payer OTHER ==
[~2024-06-17] VITALS: Ht 187.9 cm; Wt 108.9 kg
[2024-06-17 15:56] VITALS: BP 134/96
[2024-06-17] MEDS ORDERED: OXYCODONE-ACET1 EAC3 PO (15:58)
[2024-06-17] MEDS ORDERED: Acetaminophen/Oxycodone 5 MG/325 MG TABLET PO ONE (16:10)
[2024-06-17] MEDS ORDERED: CLINDAMYCIN HCL 300 MG CAPSULE PO ONE (16:10)
[2024-06-17] MEDS ORDERED: Ondansetron Hydrochloride 4 MG TAB PO ONE (16:10)
[2024-06-17] MEDS ORDERED: Ondansetron4 MG PO (16:16)
[2024-06-17] MEDS ORDERED: TRAMADOL HCL50 MG PO (16:16)
== END 2024-06-17 16:36 | disposition home or self-care (01) ==
LOC: ED 15:43
DX: K04.7 Periapical abscess without sinus (principal); F17.210 Nicotine dependence, cigarettes, uncomplicated; Z88.0 Allergy status to penicillin; Z88.2 Allergy status to sulfonamides; Z88.8 Allergy status to other drugs, medicaments and biological substances; Z79.899 Other long term (current) drug therapy; Z90.49 Acquired absence of other specified parts of digestive tract; Z98.890 Other specified postprocedural states

== ENCOUNTER → 2024-07-16 | Outpatient (CLI) | payer OTHER ==
[~2024-07-16] MED LIST changes: +METRONIDAZOLE500 M1 PO; +OXYCODONE-ACET1 EAC3 PO; +Ondansetron4 MG PO
[2024-07-16 10:08] LABS: BASO # 0.1 10*3/uL (0.0-0.1); BASO % 1.1 % (0.0-1.0); EOS # 0.2 10*3/uL (0.0-0.4); EOS % 2.8 % (1.0-4.0); HEMATOCRIT 46.7 % (42.0-52.0); MEAN CELL VOLUME 88.8 fl (80.0-94.0); MEAN CORPUSCULAR HGB 29.3 pg (27.0-31.0); MEAN PLATELET VOLUME 11.3 fl (9.6-12.3); MONO # 0.7 10*3/uL (0.1-1.0); MONO % 9.6 % (3.0-9.0); NEUT # 4.1 10*3/uL (2.3-7.9); NEUT % 57.1 % (47.0-73.0); PLATELET COUNT AUTOMATED 203 10*3/uL (130-400); RED BLOOD COUNT 5.26 10*6/uL (4.50-5.90); RED CELL DISTRI WIDTH 12.6 % (0-14.5); WHITE BLOOD COUNT 7.2 10*3/uL (4.8-10.8)
[2024-07-16 11:02] LABS: BILIRUBIN Negative (Negative); BLOOD Negative (Negative); CLARITY Cloudy (Clear); COLOR Yellow (Yellow); GLUCOSE Negative (Negative); KETONE Trace (Negative); LEUKO ESTERASE Trace (Negative); NITRITE Negative (Negative); PH 5.5 (4.5-8.0); SPECIFIC GRAVITY >= 1.030 (1.001-1.030)
[2024-07-16 13:05] LABS: BACTERIA 1+; MUCOUS 3+
== END | disposition home or self-care (01) ==
LOC: LAB 09:13
PROVIDERS: ATTEND Internal Medicine
DX: M51.26 Other intervertebral disc displacement, lumbar region (principal); M25.50 Pain in unspecified joint

== ENCOUNTER 2024-07-17 08:04 | Emergency (ER) | payer OTHER ==
[~2024-07-17] VITALS: Ht 182.8 cm; Wt 111.1 kg
[~2024-07-17 08:04] MED LIST changes: -METRONIDAZOLE500 M1 PO
[2024-07-17 08:10] VITALS: BP 123/86
[2024-07-17] MEDS ORDERED: MORPHINE Sulfate 2 MG/ML SYR IV ONE (08:20)
[2024-07-17] MEDS ORDERED: SODIUM CHLORIDE 0.9% 1,000 ML IV ONE (08:20)
[2024-07-17 08:39] LABS: BASO # 0.1 10*3/uL (0.0-0.1); BASO % 1.2 % (0.0-1.0); EOS # 0.2 10*3/uL (0.0-0.4); HEMATOCRIT 43.7 % (42.0-52.0); MEAN CORPUSCULAR HGB 29.5 pg (27.0-31.0); MEAN CORPUSCULAR HGB CONC 33.2 g/dl (33.0-37.0); MEAN PLATELET VOLUME 11.2 fl (9.6-12.3); MONO # 0.8 10*3/uL (0.1-1.0); MONO % 13.4 % (3.0-9.0); NEUT # 2.8 10*3/uL (2.3-7.9); NEUT % 48.9 % (47.0-73.0); PLATELET COUNT AUTOMATED 174 10*3/uL (130-400); RED BLOOD COUNT 4.91 10*6/uL (4.50-5.90); RED CELL DISTRI WIDTH 12.9 % (0-14.5); WHITE BLOOD COUNT 5.8 10*3/uL (4.8-10.8)
[2024-07-17 08:57] LABS: BUN 9 mg/dl (9-23); CHLORIDE 109 mmol/L (98-107)
[2024-07-17] MEDS ORDERED: metroNIDAZOLE 500 MG TAB PO ONE (10:00)
[2024-07-17] MEDS ORDERED: METRONIDAZOLE500 M1 PO ×2 (10:00→10:19)
[2024-07-17] MEDS ORDERED: HYDROmorphONE Hydrochloride 0.5 MG/0.5 ML SYRINGE IV ONE (10:00)
[2024-07-17] MEDS ORDERED: CIPRO500 MG PO ×2 (10:00→10:19)
[2024-07-17] MEDS ORDERED: Ciprofloxacin Hydrochloride 500 MG TAB PO ONE (10:00)
== END 2024-07-17 10:23 | disposition home or self-care (01) ==
LOC: ED 08:04
PROVIDERS: Internal Medicine
DX: K52.9 Noninfective gastroenteritis and colitis, unspecified (principal); R11.2 Nausea with vomiting, unspecified; Z88.0 Allergy status to penicillin; Z88.2 Allergy status to sulfonamides; Z88.8 Allergy status to other drugs, medicaments and biological substances; Z79.899 Other long term (current) drug therapy; Z90.49 Acquired absence of other specified parts of digestive tract; Z98.890 Other specified postprocedural states; Z87.891 Personal history of nicotine dependence

== ENCOUNTER → 2024-08-06 | Outpatient (CLI) | payer OTHER ==
[~2024-08-06] MED LIST changes: +METRONIDAZOLE500 M1 PO
== END | disposition home or self-care (01) ==
LOC: US 00:58
PROVIDERS: ATTEND Internal Medicine
DX: N50.3 Cyst of epididymis (principal); N43.3 Hydrocele, unspecified

== ENCOUNTER → 2024-08-23 | Outpatient (CLI) | payer OTHER | END | disposition home or self-care (01) | LOC: MRI 02:19 | PROVIDERS: ATTEND Orthopaedic Surgery | DX: M67.853 Other specified disorders of tendon, right hip (principal); M87.051 Idiopathic aseptic necrosis of right femur ==

== ENCOUNTER → 2024-09-01 | Day surgery (SDC) | payer OTHER ==
[2024-08-31 09:22] LABS: BUN 11 mg/dl (9-23); CHLORIDE 107 mmol/L (98-107); POTASSIUM 3.9 mmol/L (3.4-5.1)
[~2024-09-01] VITALS: Ht 190.5 cm; Wt 113.4 kg
[~2024-09-01] MED LIST changes: +ACETAMINOPHEN 100 ML IV ONE; +ALBUTEROL 8 GM INHALER INH ONE; +Clindamycin Phosphate 50 ML IV ONE; +Dexamethasone Sodium Phospha 4 MG/ML VIAL IV ONE; +ELIQUIS5 M1 PO; +EPINEPHrine/Lidocaine Hydroc 20 ML VIAL ONE; +HYDROmorphONE Hydrochloride 0.5 MG/0.5 ML SYRINGE ONE; +HYDROmorphone Hydrochloride 1 ML IV ONE; +Ketorolac Tromethamine 30 MG/ML VIAL ONE; +LORAZEPAM0.5 M1 PO; +Lidocaine Hydrochloride 2% 5 ML SDV IV ONE; +Midazolam Hydrochloride 2 MG/2 ML VIAL IV ONE; +Ondansetron Hydrochloride 4 MG/2 ML VIAL IV ONE; +PROPOFOL 200 MG/20 ML VIAL IV ONE; +Phenylephrine Hydrochloride 1 MG/10 ML SYRINGE IV ONE; +SEVOFLURANE 250 ML BOT INH ONE; +SODIUM CHLORIDE 0.9% 1,000 ML IV ONE; +fentaNYL CITRATE 100 MCG/2 ML VIAL IV ONE
[2024-09-01 10:08] VITALS: BP 137/95
[2024-09-01 11:04] VITALS: BP 110/76
[2024-09-01 11:19] VITALS: BP 114/69
[2024-09-01 11:34] VITALS: BP 122/80
[2024-09-01 12:04] VITALS: BP 116/70
[2024-09-01 12:16] VITALS: BP 117/73
== END | disposition home or self-care (01) ==
LOC: SDC 08-30 14:00
PROVIDERS: ATTEND Orthopaedic Surgery
DX: M87.052 Idiopathic aseptic necrosis of left femur (principal); G43.909 Migraine, unspecified, not intractable, without status migrainosus; I10 Essential (primary) hypertension; J45.909 Unspecified asthma, uncomplicated; F17.210 Nicotine dependence, cigarettes, uncomplicated; Z90.49 Acquired absence of other specified parts of digestive tract; Z86.16 Personal history of COVID-19; Z98.890 Other specified postprocedural states; Z79.899 Other long term (current) drug therapy; Z88.0 Allergy status to penicillin; Z88.2 Allergy status to sulfonamides; Z88.8 Allergy status to other drugs, medicaments and biological substances; Z82.3 Family history of stroke; Z82.61 Family history of arthritis; Z82.49 Family history of ischemic heart disease and other diseases of the circulatory system

== ENCOUNTER 2024-09-09 23:19 | Observation (INO) | payer SELFPAY ==
[~2024-09-09] VITALS: Ht 187.9 cm; Wt 115.7 kg
[~2024-09-09 23:19] MED LIST changes: -ACETAMINOPHEN 100 ML IV ONE; -ALBUTEROL 8 GM INHALER INH ONE; -Clindamycin Phosphate 50 ML IV ONE; -Dexamethasone Sodium Phospha 4 MG/ML VIAL IV ONE; -EPINEPHrine/Lidocaine Hydroc 20 ML VIAL ONE; -HYDROmorphONE Hydrochloride 0.5 MG/0.5 ML SYRINGE ONE; -HYDROmorphone Hydrochloride 1 ML IV ONE; -Ketorolac Tromethamine 30 MG/ML VIAL ONE; -Lidocaine Hydrochloride 2% 5 ML SDV IV ONE; -Midazolam Hydrochloride 2 MG/2 ML VIAL IV ONE; -Ondansetron Hydrochloride 4 MG/2 ML VIAL IV ONE; -PROPOFOL 200 MG/20 ML VIAL IV ONE; -Phenylephrine Hydrochloride 1 MG/10 ML SYRINGE IV ONE; -SEVOFLURANE 250 ML BOT INH ONE; -SODIUM CHLORIDE 0.9% 1,000 ML IV ONE; -fentaNYL CITRATE 100 MCG/2 ML VIAL IV ONE
[2024-09-09 23:30] VITALS: BP 140/110
[2024-09-09] MEDS ORDERED: Ondansetron Hydrochloride 4 MG/2 ML VIAL IV ONE (23:55)
[2024-09-09] MEDS ORDERED: MORPHINE Sulfate 2 MG/ML SYR IV ONE (23:55)
[2024-09-10] MEDS ORDERED: HYDROmorphone Hydrochloride 1 MG/ML SYR IV ONE (01:15)
[2024-09-10] MEDS ORDERED: diazePAM 5 MG TAB PO ONE (01:15)
[2024-09-10] MEDS ORDERED: Ondansetron Hydrochloride 4 MG/2 ML VIAL IV ONE (01:15)
[2024-09-10] MEDS ORDERED: HYDROmorphONE Hydrochloride 0.5 MG/0.5 ML SYRINGE IV ONE (03:30)
[2024-09-10 04:07] VITALS: BP 117/76
[2024-09-10 05:26] VITALS: BP 121/75
[2024-09-10 06:18] VITALS: BP 118/73
[2024-09-10] MEDS ORDERED: Acetaminophen/Oxycodone 5 MG/325 MG TABLET PO PRN ×2 (08:05→08:10)
[2024-09-10 09:38] VITALS: BP 111/71
[2024-09-10] MEDS ORDERED: Nicotine 21 MG PATCH T SCH (10:00)
== END 2024-09-10 14:18 | disposition home or self-care (01) ==
LOC: ED 23:19 → EDHOLD 09-10 04:01
PROVIDERS: ADMIT Internal Medicine; ATTEND Internal Medicine
DX: S70.12XA Contusion of left thigh, initial encounter (principal); M87.052 Idiopathic aseptic necrosis of left femur; G43.909 Migraine, unspecified, not intractable, without status migrainosus; E78.00 Pure hypercholesterolemia, unspecified; F17.210 Nicotine dependence, cigarettes, uncomplicated; Z86.79 Personal history of other diseases of the circulatory system; Z98.890 Other specified postprocedural states; Z88.0 Allergy status to penicillin; Z88.2 Allergy status to sulfonamides; Z88.8 Allergy status to other drugs, medicaments and biological substances; Z88.6 Allergy status to analgesic agent; Z79.899 Other long term (current) drug therapy; Z90.49 Acquired absence of other specified parts of digestive tract; X58.XXXA Exposure to other specified factors, initial encounter; Y93.89 Activity, other specified; Y92.89 Other specified places as the place of occurrence of the external cause; Y99.8 Other external cause status

== ENCOUNTER → 2024-10-05 | Outpatient (CLI) | payer SELFPAY | END | disposition home or self-care (01) | LOC: ORTHO 12:40 | PROVIDERS: ATTEND Orthopaedic Surgery | DX: M25.852 Other specified joint disorders, left hip (principal); M87.052 Idiopathic aseptic necrosis of left femur ==

== ENCOUNTER → 2025-02-22 | Outpatient (CLI) | payer BC | END | disposition home or self-care (01) | LOC: ORTHO 13:32 | PROVIDERS: ATTEND Orthopaedic Surgery | DX: M87.052 Idiopathic aseptic necrosis of left femur (principal) ==